=== PATIENT | female | born 1995 | race Hispanic/Latino ===

== ENCOUNTER 2020-03-30 11:30 | Emergency (ER) | payer SELFPAY ==
[2020-03-30 13:00] LABS: Absolute Lymphocytes (CBC) 1.4 K/uL (0.7-4.9); Basophils % 0.4 % (0-1.3); Hematocrit 39.1 % (36.0-45.0); Lymphocytes % 12.9 % (15.3-44.8); MPV 7.6 fL (7.6-11.3); RBC Red Blood Cell Count 4.68 M/uL (3.86-4.86)
[2020-03-30] MEDS ORDERED: METHYLDOPA 250 MG TABLET PO ONE (13:00)
[2020-03-30 13:04] LABS: ALT/SGPT 23 U/L (12-78); AST/SGOT 16 U/L (15-37); Albumin 3.3 g/dL (3.4-5.0); Alkaline Phosphatase 115 U/L (45-117); BUN Blood Urea Nitrogen 7 mg/dL (7-18); Bicarbonate 27 mmol/L (21-32); Bilirubin Direct < 0.1 mg/dL (0-0.2); Bilirubin Total 0.2 mg/dL (0.2-1.0); Glucose Level 82 mg/dL (74-106); NT PRO-BNP 28 pg/mL (<125); Potassium 3.7 mmol/L (3.5-5.1); Protein, Total 8.6 g/dL (6.4-8.2); Sodium Level 137 mmol/L (136-145); Troponin (Emerg Dept Use Only) < 0.02 ng/mL (0.0-0.045)
[2020-03-30] MEDS ORDERED: NA CHLORIDE 0.9% 1,000 ML ONE (13:20)
--- NOTE | 2020-03-30 13:50 | RAD REPORT ---
EXAM DESCRIPTION: RAD - Chest Single View - 03/30/2020 1:29 pm CLINICAL HISTORY: DYSPNEA, hypertension COMPARISON: None TECHNIQUE: AP portable chest image was obtained 03/30/2020 1:29 pm . FINDINGS: Lungs are clear. Heart and vasculature are normal. No measurable pleural effusion and no p neumothorax. No acute bony abnormality seen. No acute aortic findings suspected. IMPRESSION: No acute cardiopulmonary process.
--- NOTE | 2020-03-30 14:05 | EDPHYS ---
Physician Documentation [facility] Name: Rica Acuna Age: 24 yrs Sex: Female : 1995 Arrival Date: 03/30/2020 Time: 11:31 Bed 6 Private MD: ED Physician Rory Paris HPI: 03/30 13:47 This 24 yrs old Female presents to ER via Ambulatory with complaints of High pipo Blood Pressure. 13:47 The patient has elevated blood pressure and discovered this at home. Onset: The piop symptoms/episode began/occurred 3 day(s) ago. Modifying factors: The symptoms are aggravated by activity, The symptoms are alleviated by remaining still. Associated signs and symptoms: Pertinent positives: headache. Severity of symptoms: At its worst the blood pressure was moderate, in the emergency department the blood pressure is unchanged. The patient has experienced similar episodes in the past, several times. Historical: - Allergies: 11:45 No Known Allergies; aa5 - Home Meds: 11:45 Prednisone Oral [Active]; Progesterone [Active]; Vitamin Oral [Active]; aa5 Metformin Oral [Active]; - PMHx: 11:45 Gestational Diabetes; Migraines; aa5 - PSHx: 11:45 None; aa5 - Immunization history:: Adult Immunizations unknown. - Social history:: Smoking status: Patient denies any tobacco usage or history of. ROS: 13:52 Constitutional: Negative for fever, chills, and weight loss, Eyes: Negative for injury, pipo pain, redness, and discharge, ENT: Negative for injury, pain, and discharge, Neck: Negative for injury, pain, and swelling, Cardiovascular: Negative for chest pain, palpitations, and edema, Respiratory: Negative for shortness of breath, cough, wheezing, and pleuritic chest pain, Abdomen/GI: Negative for abdominal pain, nausea, vomiting, diarrhea, and constipation, Back: Negative for injury and pain, : Negative for injury, bleeding, discharge, and swelling, MS/Extremity: Negative for injury and deformity, Skin: Negative for injury, rash, and discoloration, Psych: Negative for depression, anxiety, suicide ideation, homicidal ideation, and hallucinations, Allergy/Immunology: Negative for hives, rash, and allergies, Endocrine: Negative for neck swelling, polydipsia, polyuria, polyphagia, and marked weight changes, Hematologic/Lymphatic: Negative for swollen nodes, abnormal bleeding, and unusual bruising. 13:52 Neuro: Positive for hearing loss. Exam: 13:52 Constitutional: This is a well developed, well nourished patient who is awake, alert, pipo and in no acute distress. Head/Face: Normocephalic, atraumatic. Eyes: Pupils equal round and reactive to light, extra-ocular motions intact. Lids and lashes normal. Conjunctiva and sclera are non-icteric and not injected. Cornea within normal limits. Periorbital areas with no swelling, redness, or edema. ENT: Nares patent. No nasal discharge, no septal abnormalities noted. Tympanic membranes are normal and external auditory canals are clear. Oropharynx with no redness, swelling, or masses, exudates, or evidence of obstruction, uvula midline. Mucous membranes moist. Neck: Trachea midline, no thyromegaly or masses palpated, and no cervical lymphadenopathy. Supple, full range of motion without nuchal rigidity, or vertebral point tenderness. No Meningismus. Chest/axilla: Normal chest wall appearance and motion. Nontender with no deformity. No lesions are appreciated. Cardiovascular: Regular rate and rhythm with a normal S1 and S2. No gallops, murmurs, or rubs. Normal PMI, no JVD. No pulse deficits. Respiratory: Lungs have equal breath sounds bilaterally, clear to auscultation and percussion. No rales, rhonchi or wheezes noted. No increased work of breathing, no retractions or nasal flaring. Abdomen/GI: Soft, non-tender, with normal bowel sounds. No distension or tympany. No guarding or rebound. No evidence of tenderness throughout. Back: No spinal tenderness. No costovertebral tenderness. Full range of motion. Skin: Warm, dry with normal turgor. Normal color with no rashes, no lesions, and no evidence of cellulitis. MS/ Extremity: Pulses equal, no cyanosis. Neurovascular intact. Full, normal range of motion. Psych: Awake, alert, with orientation to person, place and time. Behavior, mood, and affect are within normal limits. 13:52 Neuro: Orientation: is normal, appropriate for stated age, no acute changes, Mentation: is normal, appropriate for stated age, no acute changes, Memory: is normal, appropriate for stated age, no acute changes, Cranial nerves: grossly normal, is grossly normal based on the patient's age, no acute changes, Cerebellar function: is grossly normal, is grossly normal based on the patient's age, no acute changes, Motor: is normal, is grossly normal based on the patient's age, no acute changes, moves all fours, Sensation: is normal, no acute changes, Gait: not applicable is steady, appropriate for age, Deep tendon reflexes are 2+ (normal) in the bilateral brachioradialis, bicep, tricep and patellar and Achilles tendons, Babinski testing is normal, seizure activity, is not displayed by the patient. Vital Signs: 11:45 BP 149 / 103; Pulse 79; Resp 16 S; Temp 97.7(O); Pulse Ox 100% on R/A; Weight 95 kg aa5 (R); Height 5 ft. 4 in. (162.56 cm) (R); Pain 10/10; 12:45 BP 145 / 96; Pulse 73; Resp 16; Pulse Ox 100% on R/A; iw 13:22 BP 126 / 90; Pulse 73; Resp 17; Pulse Ox 100% ; jl7 14:00 BP 136 / 97; Pulse 73; Resp 17; Pulse Ox 100% ; Pain 10/10; jl7 11:45 Body Mass Index 35.95 (95.00 kg, 162.56 cm) aa5 [place] Coma Score: 14:09 Eye Response: spontaneous(4). Verbal Response: oriented(5). Motor Response: obeys pipo commands(6). Total: 15. MDM: 12:02 Patient medically screened. pipo 14:09 Differential diagnosis: hypertensive crisis, Malignant HTN, urinary tract infection. pipo Data reviewed: vital signs, nurses notes, lab test result(s), EKG, radiologic studies, plain films. 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 Test interpretation: by ED physician or midlevel provider: ECG, plain radiologic studies. Counseling: I had a detailed discussion with the patient and/or guardian regarding: the historical points, exam findings, and any diagnostic results supporting the discharge/admit diagnosis, lab results, radiology results. 03/30 12:20 Order name: Basic Metabolic Panel; Complete Time: 13:16 pipo 03/30 12:20 Order name: CBC with Diff; Complete Time: 14:03 [facility] 03/30 12:20 Order name: LFT's; Complete Time: 13:16 [facility] 03/30 12:20 Order name: Magnesium; Complete Time: 13:16 [facility] 03/30 12:20 Order name: NT PRO-BNP; Complete Time: 13:16 [facility] 03/30 12:20 Order name: Troponin (emerg Dept Use Only); Complete Time: 13:16 [facility] 03/30 12:20 Order name: XRAY Chest (1 view); Complete Time: 14:03 [facility] 03/30 12:20 Order name: US Transvaginal Ob [facility] 03/30 14:12 Order name: Urine Dipstick--Ancillary (enter results) [facility] 03/30 14:12 Order name: Urine --Ancillary (enter results) [facility] 03/30 12:20 Order name: EKG; Complete Time: 12:22 [facility] 03/30 12:20 Order name: Cardiac monitoring; Complete Time: 13:33 [facility] 03/30 12:20 Order name: EKG - Nurse/Tech; Complete Time: 13:33 [facility] 03/30 12:20 Order name: IV Saline Lock; Complete Time: 13:33 [facility] 03/30 12:20 Order name: Labs collected and sent; Complete Time: 13:33 [facility] 03/30 12:20 Order name: O2 Per Protocol; Complete Time: 13:33 [facility] 03/30 12:20 Order name: O2 Sat Monitoring; Complete Time: 13:33 [facility] 03/30 12:20 Order name: Urine Dipstick-Ancillary (obtain specimen); Complete Time: 13:36 [facility] Administered Medications: 13:14 Not Given (Duplicate Order): Methyldopa 500 mg PO once [facility] 14:00 Drug: Tylenol 1000 mg Route: PO; jl7 14:52 Follow up: Response: No adverse reaction; Pain is decreased jl7 14:02 Not Given (Duplicate Order): Trandate 100 mg PO once [facility] 14:20 Drug: Trandate 50 mg Route: PO; jl7 14:52 Follow up: Response: No adverse reaction; Blood pressure is lowered jl7 14:55 Not Given (Patient Refused): NS 0.9% 1000 ml IV at 125 ml/hr continuous jl7 Disposition: 03/30/20 14:05 Discharged to Home. Impression: Essential (primary) hypertension, related conditions, unspecified, first trimester, Headache. - Condition is Stable. - Discharge Instructions: General Headache Without Cause, Hypertension, First Trimester of , [id number], Hypertension, [id number], First Trimester of , How to Take Your Blood Pressure, [id number], General Headache Without Cause, Fhtz-as-[id number], Managing Your Hypertension. - Prescriptions for Vitamin 27- 0.8 mg Oral Tablet - take 1 tablet by ORAL route once daily; 30 tablet. Trandate 200 mg Oral Tablet - take 0.25 tablet by ORAL route every 12 hours; 30 tablet. - Medication Reconciliation Form, Thank You Letter, Antibiotic Education, Prescription Opioid Use form. - Follow up: Vu Sexton MD; When: 2 - 3 days; Reason: Recheck today's complaints, Re-evaluation by your physician. - Problem is new. - Symptoms have improved. Signatures: Dispatcher [employer] EDGA Rory Paris MD MD cha Calderon, Audri, RN RN aa5 Mckenna Cortez RN RN jl7 Corrections: (The following items were deleted from the chart) 14:56 14:05 03/30/2020 14:05 Discharged to Home. Impression: Essential (primary) jl7 hypertension; related conditions, unspecified, first trimester; Headache. Condition is Stable. Forms are Medication Reconciliation Form, Thank You Letter, Antibiotic Education, Prescription Opioid Use. Follow up: Vu Sexton; When: 2 - 3 days; Reason: Recheck today's complaints, Re-evaluation by your physician. Problem is new. Symptoms have improved. pipo
--- NOTE | 2020-03-30 14:05 | ER ---
Nurse's Notes [facility] Name: Rica Acuna Age: 24 yrs Sex: Female : 1995 Arrival Date: 03/30/2020 Time: 11:31 Bed 6 Private MD: Diagnosis: Essential (primary) hypertension; related conditions, unspecified, first trimester;Headache Presentation: 03/30 11:45 Chief complaint: Patient states: has been on fertility treatment (prednisone and aa5 progesterone) for 6 months and reports she is approximately 5-6 weeks . Pt states "I've had a headache for the last 2 days and I went to a clinic and they took my blood pressure and it was 163/105 so they sent me here". Pt reports low abdominal cramping x 2 weeks, denies vaginal bleeding. Pt states "I had gestational diabetes during the 3rd trimester with my last baby but not high blood pressure". Pt reports hx of migraines but states "it doesn't feel like a migraine". 11:45 Coronavirus screen: Client denies travel out of the [place] in the last 14 days. headache. aa5 Ebola Screen: Patient negative for fever greater than or equal to 101.5 degrees Fahrenheit, and additional compatible Ebola Virus Disease symptoms. Initial Sepsis Screen: Does the patient meet any 2 criteria? No. Patient's initial sepsis screen is negative. Does the patient have a suspected source of infection? No. Patient's initial sepsis screen is negative. Risk Assessment: Do you want to hurt yourself or someone else? Patient reports no desire to harm self or others. Onset of symptoms was March 30, 2020. 11:45 Acuity: MARY 3 aa5 11:45 Method Of Arrival: Ambulatory aa5 Historical: - Allergies: 11:45 No Known Allergies; aa5 - Home Meds: 11:45 Prednisone Oral [Active]; Progesterone [Active]; Vitamin Oral [Active]; aa5 Metformin Oral [Active]; - PMHx: 11:45 Gestational Diabetes; Migraines; aa5 - PSHx: 11:45 None; aa5 - Immunization history:: Adult Immunizations unknown. - Social history:: Smoking status: Patient denies any tobacco usage or history of. Screenin:23 Abuse screen: Denies threats or abuse. Denies injuries from another. Nutritional jl7 screening: No deficits noted. Tuberculosis screening: No symptoms or risk factors identified. Fall Risk IV access (20 points). Total Villatoro Fall Scale indicates No Risk (0-24 pts). Assessment: 12:00 General: Appears in no apparent distress. uncomfortable, Behavior is calm, cooperative, jl7 appropriate for age. Pain: Complains of pain in MTZ Pain currently is 10 out of 10 on a pain scale. Neuro: Level of Consciousness is awake, alert, obeys commands, Oriented to person, place, time, situation. Cardiovascular: Patient's skin is warm and dry. Respiratory: Airway is patent Respiratory effort is even, unlabored, Respiratory pattern is regular, symmetrical. Derm: Skin is pink, warm \\T\\ dry. 14:00 Reassessment: pt c/o MTZ, rated 10/10, requesting medications, ERD notified, see MAR for jl7 orders. Vital Signs: 11:45 BP 149 / 103; Pulse 79; Resp 16 S; Temp 97.7(O); Pulse Ox 100% on R/A; Weight 95 kg aa5 (R); Height 5 ft. 4 in. (162.56 cm) (R); Pain 10/10; 12:45 BP 145 / 96; Pulse 73; Resp 16; Pulse Ox 100% on R/A; iw 13:22 BP 126 / 90; Pulse 73; Resp 17; Pulse Ox 100% ; jl7 14:00 BP 136 / 97; Pulse 73; Resp 17; Pulse Ox 100% ; Pain 10/10; jl7 11:45 Body Mass Index 35.95 (95.00 kg, 162.56 cm) aa5 [place] Coma Score: 14:09 Eye Response: spontaneous(4). Verbal Response: oriented(5). Motor Response: obeys pipo commands(6). Total: 15. ED Course: 11:31 Patient arrived in ED. ag5 11:45 Mckenna Cortez RN is Primary Nurse. jl7 11:45 Arm band placed on Patient placed in an exam room, on a stretcher. aa5 12:02 Rory Paris MD is Attending Physician. pipo 12:03 Triage completed. aa5 12:30 Initial lab(s) drawn, by ED staff, sent to lab. Inserted saline lock: 20 gauge in right jl7 antecubital area, using aseptic technique. ,using aseptic technique. inserted by CRISTOFER Fatima Blood collected. 13:23 Patient has correct armband on for positive identification. Placed in gown. Bed in low jl7 position. Call light in reach. Side rails up X 1. cloth folder hand on. Pulse ox on. NIBP on. 13:29 XRAY Chest (1 view) In Process Unspecified. EDMS 13:36 EKG done, by ED staff, reviewed by Rory Paris MD. jl7 13:54 US Transvaginal Ob In Process Unspecified. EDMS 14:04 Vu Sexton MD is Referral Physician. [facility] 14:55 No provider procedures requiring assistance completed. IV discontinued, intact, jl7 bleeding controlled, No redness/swelling at site. Pressure dressing applied. Administered Medications: 13:14 Not Given (Duplicate Order): Methyldopa 500 mg PO once [facility] 14:00 Drug: Tylenol 1000 mg Route: PO; jl7 14:52 Follow up: Response: No adverse reaction; Pain is decreased jl7 14:02 Not Given (Duplicate Order): Trandate 100 mg PO once [facility] 14:20 Drug: Trandate 50 mg Route: PO; jl7 14:52 Follow up: Response: No adverse reaction; Blood pressure is lowered jl7 14:55 Not Given (Patient Refused): NS 0.9% 1000 ml IV at 125 ml/hr continuous jl7 Outcome: 14:05 Discharge ordered by . [facility] 14:55 Discharged to home ambulatory. jl7 14:55 Condition: stable 14:55 Discharge instructions given to patient, Instructed on discharge instructions, follow up and referral plans. medication usage, Demonstrated understanding of instructions, follow-up care, medications, Prescriptions given X 2. 14:56 Patient left the ED. jl7 Signatures: Dispatcher [employer] Rory Rmaírez MD MD cha Williams, Irene, RN RN iw Calderon, Audri, RN RN aa5 Mckenna Cortez RN RN jl7 Alfredo Godoy5 Corrections: (The following items were deleted from the chart) 12:06 11:45 Chief complaint: Patient states: has been on fertility treatment (prednisone and aa5 progesterone) for 6 months and reports she is approximately 5-6 weeks . Pt states "I've had a headache for the last 2 days and I went to a clinic and they took my blood pressure and it was 163/105 so they sent me here". Pt reports low abdominal cramping x 2 weeks, denies vaginal bleeding. Pt states "I had gestational diabetes during the 3rd trimester with my last baby but not high blood pressure". aa5 13: 10:00 Response: No adverse reaction iw 10:00 Response: No adverse reaction iw 10:00 Response: No adverse reaction [facility] 10:00 Response: No adverse reaction [facility]
[2020-03-30] MEDS ORDERED: ACETAMINOPHEN 500 MG TAB ONE (14:11)
--- NOTE | 2020-03-30 14:22 | RAD REPORT ---
EXAM DESCRIPTION: US - Transvaginal OB - 03/30/2020 1:55 pm CLINICAL HISTORY: ABD CRAMPING, COMPARISON: No comparisons FINDINGS: Normal shaped intrauterine gestational sac identified fundal portion. No myometrial mass. No hematoma or suspicious mass in the endometrial cavity. Gestational sac, pole and yolk sac wa ll identifiable. Measurements correspond to a 6 week 2 day age. Heart rate is 96-101 BPM. Minimal physiologic quantity fluid in the cul de sac. Both ovaries are identified and show normal blood flow in the ovarian stroma. No adnexal abnormality identified. IMPRESSION: Single 6 week 2 day IUP with cardiac activity demonstrated.
[2020-03-30 14:27] LABS: Urine Blood TRACE (NEG); Urine Glucose NEGATIVE (NEG); Urine Protein NEGATIVE (NEG); Urine Specific Gravity 1.015 (1.005-1.030); Urine pH 5.5 (5.0-7.0)
[2020-03-30] MEDS ORDERED: LABETALOL HCL 100 MG TAB ONE ×2 (14:28→14:30)
[2020-04-03 01:21] VITALS: TEMP 97.7; O2SAT 100
[2020-04-03 01:24] VITALS: BP 136/97
== END 2020-03-30 14:56 | disposition home or self-care (01) ==
LOC: ER 11:30
DX: O16.1 Unspecified maternal hypertension, first trimester (principal); O24.419 Gestational diabetes mellitus in pregnancy, unspecified control; Z3A.01 Less than 8 weeks gestation of pregnancy
CPT/HCPCS: 36415; 71045; 76817; 80048; 80076; 81003; 81025; 83735; 83880; 84484; 85025; 93005; 99285; J7030

== ENCOUNTER 2022-03-05 20:34 | Emergency (ER) | payer SELFPAY ==
--- OUTSIDE RECORDS SUMMARY | 2022-03-05 20:41 | XMS REPORT | Continuity of Care Document ---
:1995 Author Organization [facility] t Address [address] [place] [address] Care Team Providers Name Role Phone Janki Oliveros Primary Care Physician [phone] DIVYA HENSLEY Attending Clinician Unavailable Divya Hensley DNP Attending Clinician Doctor Unassigned, [place] Attending Clinician Unavailable Provider, Daljit-Rmchp Temp Attending Clinician Unavailable Yanelis Joseph PA-C Attending Clinician YANELIS JOSEPH Attending Clinician Unavailable Reyna Perry Attending Clinician REYNA TRISTAN Attending Clinician Unavailable Yasmani, DenRmdonip Attending Clinician Unavailable Janki Oliveros Attending Clinician [phone] JANKI DUEÑAS Attending Clinician Unavailable 1, [facility] Room Attending Clinician Unavailable David Lemos MD Attending Clinician Sera Lewis RN Attending Clinician Unavailable SHILPA BANGURA Attending Clinician Unavailable Kathia Vazquez MD Attending Clinician 3, [facility] Room Attending Clinician Unavailable Ron Hope MD Attending Clinician Lab, [facility] Attending Clinician Unavailable Jennifer JACINTO, Trinity Hua Attending Clinician 1, [facility] Room Attending Clinician Unavailable Marc CLEVELAND, Ana Attending Clinician Unavailable Risk, Dxi-Qacze-Ps/High Attending Clinician Unavailable Alvarez JERALDJo Ann Attending Clinician DAVID LEMOS Admitting Clinician Unavailable KATHIA VAZQUEZ Admitting Clinician Unavailable David Lemos MD Admitting Clinician Kathia Vazquez MD Admitting Clinician Payers Payer Name Policy Type Policy Number Effective Date Expiration Date S laura [facility] M[facility] CHIP PAMELLA [id number] 2020 LOW FPL 00:00:00 [place] [facility] [id number] 2020 HEALTH PLAN MOM 00:00:00 CHIP LOW FPL Problems Condition Condition Condition Status Onset Resolution Last Treating Co mments Source Name Details Category Date Date Treatment Clinician Date COVID-19 COVID-19 Disease Active Unive rs affecting affecting 7-28 [place] Med[place] l trimester trimester Bran ch 38 weeks 38 weeks Disease Active Unive rs gestation gestation 7-28 ity of of of 00:00: [place] 00 [facility] papi Branch 25 weeks 25 weeks Disease Active Unive rs gestation gestation 5-03 ity of of of 00:00: [place] 00 Medi papi Branch 22 weeks 22 weeks Disease Active Unive rs gestation gestation 4-06 ity of of of 00:00: [place] 00 [facility] Branch UTI in UTI in Disease Active Overview: Univer s 04-28 Formattin i ty of 00:00: g of this [place] 00 note Medical might be Branch different from the original. neg patti Abnormal Abnormal Disease Active Overview: Un [facility] maternal maternal 04-25 Formattin ity of glucose glucose 00:00: g of this [place] tolerance, tolerance, 00 note Me dical antepartum antepartum might be Branch different from the original. Passed early 3hr gtt History of History of Disease Active Overview : Univers gestationa gestationa 04-24 Formattin ity of l diabetes l diabetes 00:00: g of this [place] 00 note Medical might be Branch different from the original. Reports diet controlle d Supervisio Supervisio Disease Active 2021-0 U nivers n of n of 1-07 ity of high-risk high-risk 00:00: [place] s [facility] Obesity in Obesity in Disease Active 2020- U nivers - ity of 00:00: [place] [address] Medical [place] Multiparit Multiparit Disease Active U nivers y y - ity of 00:00: [place] [address] Medical [place] Medication Medication Disease Active U nivers exposure exposure 1-07 ity of during during 00:00: [place] first first 00 Medical trimester trimester Bran ch of of Allergies, Adverse Reactions, Alerts Allergy Allergy Status Severity Reaction(s) Onset Inactive Treating Comm ents Source Name Type Date Date Clinician NO KNOWN Drug Active Univers ALLERGIE Class ity of S [facility] Social History Social Habit Start Date Stop Date Quantity Comments Source ASSERTION 2020-03-04 University of 00:00:00 [facility] Exposure to Not sure University of SARS-CoV-2 [place] [facility] (event) Branch History [facility] o f Alcohol Comment [place] [facility] ical Branch Alcohol intake 2021-03-11 2021-03-11 Lifetime University of 00:00:00 00:00:00 non-drinker [place] [facility] (finding) Branch Tobacco use and 2020-04-24 2020-04-24 Never used Universit y of exposure 00:00:00 00:00:00 [place] [facility] Branch History SDOH 2020-04-24 2020-04-24 1 University o f Alcohol Frequency 00:00:00 00:00:00 [place] M edical Branch History [facility] 2020-04-24 2020-04-24 99 University o f Alcohol Std 00:00:00 00:00:00 [place] [facility] Drinks Branch History SDAL 2020-04-24 2020-04-24 1 University o f Alcohol Binge 00:00:00 00:00:00 [place] [facility] al Branch Sex Ass[birth year] At [birth year] Universit y of 00:00:00 00:00:00 [facility] Smoking Status Start Date Stop Date Source Never smoker [facility] Branch Medications Ordered Filled Start Stop Current Ordering Indication Dosage Frequency Signature Comments Components Source Medication Medication Date Date Medication? Clinician (SIG) Name Name Yes [id number] 1{tbl} Take 1 U nivers [id number] 7-30 tablet by ity of fum-folic 00:00: mouth [place] () 00 daily. Medical 27 mg iron- Branch 1 mg Tab ferrous Yes [id number] 325mg Take 1 Uni vers sulfate 325 7-30 tablet by ity of mg (65 mg 00:00: mouth 2 [place] iron) 00 (two) Medical tablet times Branch daily. Yes [id number] 1{tbl} Take 1 U nivers [id number] 7-30 tablet by ity of fum-folic 00:00: mouth [place] () 00 daily. Medical 27 mg iron- Branch 1 mg Tab docusate Yes [id number] 240mg Take 1 Un [facility] calcium 240 7-30 capsule by it y of mg capsule 00:00: mouth [place] 00 daily as Medical needed for Branch Constipati on. ferrous Yes [id number] 325mg Take 1 Uni vers sulfate 325 7-30 tablet by ity of mg (65 mg 00:00: mouth 2 [place] iron) 00 (two) Medical tablet times Branch daily. ibuprofen Yes [id number] 600mg Take 1 U nivers 600 mg 7-30 tablet by ity of tablet 00:00: mouth [place] 00 every 6 Medical (six) Branch hours as needed (Pain). Take with food or milk. Yes [id number] 1{tbl} Take 1 U nivers [id number] 7-30 tablet by ity of fum-folic 00:00: mouth [place] () 00 daily. Medical 27 mg iron- Branch 1 mg Tab ferrous Yes [id number] 325mg Take 1 Uni vers sulfate 325 7-30 tablet by ity of mg (65 mg 00:00: mouth 2 [place] iron) 00 (two) Medical tablet times Branch daily. Yes [id number] 1{tbl} Take 1 U nivers [id number] 7-30 tablet by ity of fum-folic 00:00: mouth [place] () 00 daily. Medical 27 mg iron- Branch 1 mg Tab ferrous Yes [id number] 325mg Take 1 Uni vers sulfate 325 7-30 tablet by ity of mg (65 mg 00:00: mouth 2 [place] iron) 00 (two) Medical tablet times Branch daily. docusate 2020- No [id number] 240mg Take 1 U nivers calcium 240 11-14 capsule by i ty of mg capsule 00:00: 00:00 mouth once [place] 00 :00 daily as Medical needed for Branch Constipati on. ibuprofen 2020- No [id number] 600mg Take 1 Univers 600 mg 11-14 tablet by ity of tablet 00:00: 00:00 mouth [place] 00 :00 every 6 Medical (six) Branch hours as needed (Pain). Take with food or milk. pantoprazol Yes [id number] 40mg Take 1 Univers e 7-23 tablet by ity of (PROTONIX) 00:00: mouth [place] 40 mg EC 00 daily. Medical tablet Branch pantoprazol Yes [id number] 40mg Take 1 Univers e 7-23 tablet by ity of (PROTONIX) 00:00: mouth [place] 40 mg EC 00 daily. Medical tablet Branch metroNIDAZO 2020- No [id number] 500mg Take 1 Un [facility] LE 500 mg 7-16 -24 tablet by ity of tablet 00:00: 04:59 mouth 2 [place] 00 :00 (two) Medical times Branch daily for 7 days. Indication s: an infection of the vagina called bacterial vaginosis metroNIDAZO 2020- No [id number] 500mg Take 1 Un [facility] LE 500 mg 7-16 -24 tablet by ity of tablet 00:00: 04:59 mouth 2 [place] 00 :00 (two) Medical times Branch daily for 7 days. Indication s: an infection of the vagina called bacterial vaginosis metroNIDAZO 2020- No 2213 500mg Take 1 Un [facility] LE 500 mg 7-16 07-24 tablet by ity of tablet 00:00: 04:59 mouth 2 [place] 00 :00 (two) Medical times Branch daily for 7 days. Indication s: an infection of the vagina called bacterial vaginosis metroNIDAZO 2020- No 2213 500mg Take 1 Un [facility] LE 500 mg 7-16 07-24 tablet by ity of tablet 00:00: 04:59 mouth 2 [place] 00 :00 (two) Medical times Branch daily for 7 days. Indication s: an infection of the vagina called bacterial vaginosis metroNIDAZO 2020- No 2213 500mg Take 1 Un [facility] LE 500 mg 10-31 tablet by ity of tablet 00:00: 04:59 mouth 2 [place] 00 :00 (two) Medical times Branch daily for 7 days. Indication s: an infection of the vagina called bacterial vaginosis metroNIDAZO 2020- No 2213 500mg Take 1 Un [facility] LE 500 mg 10-31 tablet by ity of tablet 00:00: 04:59 mouth 2 [place] 00 :00 (two) Medical times Branch daily for 7 days. Indication s: an infection of the vagina called bacterial vaginosis metroNIDAZO 2020- No [id number] 500mg Take 1 Un [facility] LE 500 mg 10-31 tablet by ity of tablet 00:00: 04:59 mouth 2 [place] 00 :00 (two) Medical times Branch daily for 7 days. Indication s: an infection of the vagina called bacterial vaginosis fluconazole 2020- No [id number] 150mg Take 1 Univers (DIFLUCAN) 10-31 tablet by ity of 150 mg 00:00: 04:59 mouth [place] tablet 00 :00 now for 1 Medical dose. Branch fluconazole 2020- No [id number] 150mg Take 1 Univers (DIFLUCAN) 10-31 tablet by ity of 150 mg 00:00: 04:59 mouth [place] tablet 00 :00 now for 1 Medical dose. Branch fluconazole 2020- No [id number] 150mg Take 1 Univers (DIFLUCAN) 10-31 tablet by ity of 150 mg 00:00: 04:59 mouth [place] tablet 00 :00 now for 1 Medical dose. Branch fluconazole 2020- No [id number] 150mg Take 1 Univers (DIFLUCAN) 10-31 tablet by ity of 150 mg 00:00: 04:59 mouth [place] tablet 00 :00 now for 1 Medical dose. Branch fluconazole 2020- No [id number] 150mg Take 1 Univers (DIFLUCAN) 10-31 tablet by ity of 150 mg 00:00: 04:59 mouth [place] tablet 00 :00 now for 1 Medical dose. Branch Iron Fum & 2020- No Anemia of 1{capsu Take 1 Univers P-FA-Vit B 08-22- mother in le} capsule by ity of & C No.9 00:00: 04:59 , mouth [place] (INTEGRA 00 :00 antepartum daily for Medical PLUS) 125 90 days. Branch mg iron- 1 mg Cap Iron Fum & 2020- No [id number] 1{capsu Take 1 Univers P-FA-Vit B 08-22- le} capsule by it y of & C No.9 00:00: 04:59 mouth [place] (INTEGRA 00 :00 daily for Medica l PLUS) 125 90 days. Branch mg iron- 1 mg Cap Iron Fum & 2020- No [id number] 1{capsu Take 1 Univers P-FA-Vit B 08-22- le} capsule by it y of & C No.9 00:00: 04:59 mouth [place] (INTEGRA 00 :00 daily for Medica l PLUS) 125 90 days. Branch mg iron- 1 mg Cap Iron Fum & 2020- No [id number] 1{capsu Take 1 Univers P-FA-Vit B 08-22- le} capsule by it y of & C No.9 00:00: 04:59 mouth [place] (INTEGRA 00 :00 daily for Medica l PLUS) 125 90 days. Branch mg iron- 1 mg Cap Iron Fum & 2020- No [id number] 1{capsu Take 1 Univers P-FA-Vit B 08-22- le} capsule by it y of & C No.9 00:00: 04:59 mouth [place] (INTEGRA 00 :00 daily for Medica l PLUS) 125 90 days. Branch mg iron- 1 mg Cap Iron Fum & 2020- No [id number] 1{capsu Take 1 Univers P-FA-Vit B 08-22-06 le} capsule by it y of & C No.9 00:00: 04:59 mouth [place] (INTEGRA 00 :00 daily for Medica l PLUS) 125 90 days. Branch mg iron- 1 mg Cap Iron Fum & 2020- No [id number] 1{capsu Take 1 Univers P-FA-Vit B 5-07 08-06 le} capsule by it y of & C No.9 00:00: 04:59 mouth [place] (INTEGRA 00 :00 daily for Medica l PLUS) 125 90 days. Branch mg iron- 1 mg Cap Iron Fum & 2020- No [id number] 1{capsu Take 1 Univers P-FA-Vit B 5-07 08-06 le} capsule by it y of & C No.9 00:00: 04:59 mouth [place] (INTEGRA 00 :00 daily for Medica l PLUS) 125 90 days. Branch mg iron- 1 mg Cap Iron Fum & 2020- No [id number] 1{capsu Take 1 Univers P-FA-Vit B 5-07 08-06 le} capsule by it y of & C No.9 00:00: 04:59 mouth [place] (INTEGRA 00 :00 daily for Medica l PLUS) 125 90 days. Branch mg iron- 1 mg Cap Iron Fum & 2020- No [id number] 1{capsu Take 1 Univers P-FA-Vit B 5-07 08-06 le} capsule by it y of & C No.9 00:00: 04:59 mouth [place] (INTEGRA 00 :00 daily for Medica l PLUS) 125 90 days. Branch mg iron- 1 mg Cap Iron Fum & 2020- No [id number] 1{capsu Take 1 Univers P-FA-Vit B 5-07 08-06 le} capsule by it y of & C No.9 00:00: 04:59 mouth [place] (INTEGRA 00 :00 daily for Medica l PLUS) 125 90 days. Branch mg iron- 1 mg Cap Iron Fum & 2020- No [id number] 1{capsu Take 1 Univers P-FA-Vit B 5-07 08-06 le} capsule by it y of & C No.9 00:00: 04:59 mouth [place] (INTEGRA 00 :00 daily for Medica l PLUS) 125 90 days. Branch mg iron- 1 mg Cap Iron Fum & 2020- No [id number] 1{capsu Take 1 Univers P-FA-Vit B 5-07 08-06 le} capsule by it y of & C No.9 00:00: 04:59 mouth [place] (INTEGRA 00 :00 daily for Medica l PLUS) 125 90 days. Branch mg iron- 1 mg Cap Iron Fum & 2020- No [id number] 1{capsu Take 1 Univers P-FA-Vit B 08-2206 le} capsule by it y of & C No.9 00:00: 04:59 mouth [place] (INTEGRA 00 :00 daily for Medica l PLUS) 125 90 days. Branch mg iron- 1 mg Cap Iron Fum & 2020- No [id number] 1{capsu Take 1 Univers P-FA-Vit B 08-22 le} capsule by it y of & C No.9 00:00: 00:00 mouth [place] (INTEGRA 00 :00 daily for Medica l PLUS) 125 90 days. Branch mg iron- 1 mg Cap Iron Fum & 2020- No [id number] 1{capsu Take 1 Univers P-FA-Vit B 08-22 le} capsule by it y of & C No.9 00:00: 00:00 mouth [place] (INTEGRA 00 :00 daily for Medica l PLUS) 125 90 days. Branch mg iron- 1 mg Cap Iron Fum & 2020- No [id number] 1{capsu Take 1 Univers P-FA-Vit B 08-22 le} capsule by it y of & C No.9 00:00: 00:00 mouth [place] (INTEGRA 00 :00 daily for Medica l PLUS) 125 90 days. Branch mg iron- 1 mg Cap fluconazole No 150mg 150 mg, U nivers (DIFLUCAN) 08-18 Oral, ONCE it y of tablet 150 19:15: 18:58 NOW, 1 [place] mg 00 :00 dose, [facility] 08/18/20 at [place] 1415, FAITH
Re ason for Anti-Infec tive: Documented Infection< br>Documen keyon Infection Site: Pelvic
Duration of Therapy: Other (see Comments) PREDNISONE 2020- No 5mg Take 5 mg U nivers ORAL 08-18-03 by mouth ity of 19:01: 00:00 daily. [place] 39 :00 [facility] PROGESTERON 2020- No 15mg Take 15 mg Univers E 5-06 20-03 by mouth 2 ity of MICRONIZED 19:01: 00:00 (two) [place] ORAL 39 :00 times Medical daily. Branch metroNIDAZO 2020- No Bacterial 500mg Take 1 Univers LE 500 mg 5-06 20- vaginosis tablet by ity of tablet 00:00: 04:59 in mouth 2 [place] 00 :00 (two) Medical times Branch daily for 7 days. metroNIDAZO 2020- No Bacterial 500mg Take 1 Univers LE 500 mg 508-26 vaginosis tablet by ity of tablet 00:00: 04:59 in mouth 2 [place] 00 :00 (two) Medical times Branch daily for 7 days. metroNIDAZO 2020- No [id number] 500mg Take 1 Univers LE 500 mg 08-18 9109 tablet by ity of tablet 00:00: 04:59 mouth 2 [place] 00 :00 (two) Medical times Branch daily for 7 days. metroNIDAZO 2020- No [id number] 500mg Take 1 Univers LE 500 mg 08-18 9109 tablet by ity of tablet 00:00: 04:59 mouth 2 [place] 00 :00 (two) Medical times Branch daily for 7 days. metroNIDAZO 2020- No [id number] 500mg Take 1 Univers LE 500 mg 08-18- 9109 tablet by ity of tablet 00:00: 04:59 mouth 2 [place] 00 :00 (two) Medical times Branch daily for 7 days. metroNIDAZO 2020- No [id number] 500mg Take 1 Univers LE 500 mg 5-06 20- 9109 tablet by ity of tablet 00:00: 04:59 mouth 2 [place] 00 :00 (two) Medical times Branch daily for 7 days. metroNIDAZO 2020- No [id number] 500mg Take 1 Univers LE 500 mg 5-06 20- 9109 tablet by ity of tablet 00:00: 04:59 mouth 2 [place] 00 :00 (two) Medical times Branch daily for 7 days. PREDNISONE Yes 5mg Take 5 mg [facility] ORAL 4-06 by mouth ity of 18:25: daily. [place] 24 Medical Branch PROGESTERON 2020-0 Yes 15mg Take 15 mg Univers E 4-06 by mouth 2 ity of MICRONIZED 18:25: (two) [place] ORAL 24 times Medical daily. Branch PREDNISONE 1-0 Yes 5mg Take 5 mg Un [place] ORAL 4-06 by mouth ity of 18:25: daily. [address] PROGESTERON 2020-0 Yes 15mg Take 15 mg Univers E 4-06 by mouth 2 ity of MICRONIZED 18:25: (two) [place] ORAL 24 times Medical daily. Branch PREDNISONE 1-0 Yes 5mg Take 5 mg [facility] [place] ORAL 4-06 by mouth ity of 18:25: daily. [address] PROGESTERON 2020-0 Yes 15mg Take 15 mg Univers E 4-06 by mouth 2 ity of MICRONIZED 18:25: (two) [place] ORAL 24 times Medical daily. Branch PREDNISONE 1-0 Yes 5mg Take 5 mg [facility] [place] ORAL 4-06 by mouth ity of 18:25: daily. [address] PROGESTERON 2020-0 Yes 15mg Take 15 mg Univers E 4-06 by mouth 2 ity of MICRONIZED 18:25: (two) [place] ORAL 24 times Medical daily. [place] PREDNISONE 1-0 Yes 5mg Take 5 mg Un [place] ORAL 1-21 by mouth ity of 16:08: daily. [address] PREDNISONE 1-0 Yes 5mg Take 5 mg [facility] [place] ORAL 1-21 by mouth ity of 16:08: daily. [address] PREDNISONE 1-0 Yes 5mg Take 5 mg [facility] [place] ORAL 1-21 by mouth ity of 16:08: daily. [address] PREDNISONE 2021-0 Yes 5mg Take 5 mg [facility] [place] ORAL 1-21 by mouth ity of 16:08: daily. [address] PREDNISONE 2021-0 Yes 5mg Take 5 mg [facility] [place] ORAL 1-21 by mouth ity of 16:08: daily. [address] PREDNISONE 2021-0 Yes 5mg Take 5 mg [facility] [place] ORAL 1-21 by mouth ity of 16:08: daily. [address] PREDNISONE 2021-0 Yes 5mg Take 5 mg [facility] [place] ORAL 1-21 by mouth ity of 16:08: daily. [address] PREDNISONE 2021-0 Yes 5mg Take 5 mg [facility] [place] ORAL 1-21 by mouth ity of 16:08: daily. [address] PREDNISONE 2020-0 Yes 5mg Take 5 mg [facility] [place] ORAL 1-21 by mouth ity of 16:08: daily. [address] PREDNISONE 2020-0 Yes 5mg Take 5 mg [facility] [place] ORAL 1-21 by mouth ity of 16:08: daily. [address] PREDNISONE 2020-0 Yes 5mg Take 5 mg [facility] [place] ORAL 1-21 by mouth ity of 16:08: daily. [address] Nitrofurant 2020- No [id number] 100mg Take 1 Univers oin&Nit. 04-28 capsule by ity of Macrocryst 00:00: 05:59 mouth 2 [place] (MACROBID) 00 :00 (two) Medical 100 mg times Branch capsule daily for 10 days. Nitrofurant 2020- No [id number] 100mg Take 1 Univers oin&Nit. 04-28 capsule by ity of Macrocryst 00:00: 05:59 mouth 2 [place] (MACROBID) 00 :00 (two) Medical 100 mg times Branch capsule daily for 10 days. Nitrofurant 2020- No [id number] 100mg Take 1 Univers oin&Nit. 04-28 capsule by ity of Macrocryst 00:00: 05:59 mouth 2 [place] (MACROBID) 00 :00 (two) Medical 100 mg times Branch capsule daily for 10 days. Nitrofurant 2020- No [id number] 100mg Take 1 Univers oin&Nit. 04-28 capsule by ity of Macrocryst 00:00: 05:59 mouth 2 [place] (MACROBID) 00 :00 (two) Medical 100 mg times Branch capsule daily for 10 days. Nitrofurant 2020- No [id number] 100mg Take 1 Univers oin&Nit. 04-28 capsule by ity of Macrocryst 00:00: 05:59 mouth 2 [place] (MACROBID) 00 :00 (two) Medical 100 mg times Branch capsule daily for 10 days. Nitrofurant 2020- No [id number] 100mg Take 1 Univers oin&Nit. 04-28 capsule by ity of Macrocryst 00:00: 05:59 mouth 2 [place] (MACROBID) 00 :00 (two) Medical 100 mg times Branch capsule daily for 10 days. Nitrofurant 2020- No [id number] 100mg Take 1 Univers oin&Nit. 04-28 capsule by ity of Macrocryst 00:00: 05:59 mouth 2 [place] (MACROBID) 00 :00 (two) Medical 100 mg times Branch capsule daily for 10 days. proMETHazin Yes Nausea and 25mg Take 1 Univers e 25 mg 1-08 vomiting tablet by ity of tablet 00:00: during mouth [place] 00 every 6 Medical (six) Branch hours as needed for Nausea and Vomiting (N/V). proMETHazin Yes Nausea and 25mg Take 1 Univers e 25 mg 1-08 vomiting tablet by ity of tablet 00:00: during mouth [place] 00 every 6 Medical (six) Branch hours as needed for Nausea and Vomiting (N/V). proMETHazin Yes [id number] 25mg Take 1 Univers e 25 mg 1-08 tablet by ity of tablet 00:00: mouth [place] 00 every 6 Medical (six) Branch hours as needed for Nausea and Vomiting (N/V). proMETHazin Yes [id number] 25mg Take 1 Univers e 25 mg 1-08 tablet by ity of tablet 00:00: mouth [place] 00 every 6 Medical (six) Branch hours as needed for Nausea and Vomiting (N/V). proMETHazin Yes [id number] 25mg Take 1 Univers e 25 mg 1-08 tablet by ity of tablet 00:00: mouth [place] 00 every 6 Medical (six) Branch hours as needed for Nausea and Vomiting (N/V). proMETHazin 0 Yes [id number] 25mg Take 1 Univers e 25 mg 1-08 tablet by ity of tablet 00:00: mouth [place] 00 every 6 Medical (six) Branch hours as needed for Nausea and Vomiting (N/V). proMETHazin Yes [id number] 25mg Take 1 Univers e 25 mg 1-08 tablet by ity of tablet 00:00: mouth [place] 00 every 6 Medical (six) Branch hours as needed for Nausea and Vomiting (N/V). proMETHazin 2020-0 Yes [id number] 25mg Take 1 Univers e 25 mg 1-08 tablet by ity of tablet 00:00: mouth [place] 00 every 6 Medical (six) Branch hours as needed for Nausea and Vomiting (N/V). proMETHazin 2020-0 Yes [id number] 25mg Take 1 Univers e 25 mg 1-08 tablet by ity of tablet 00:00: mouth [place] 00 every 6 Medical (six) Branch hours as needed for Nausea and Vomiting (N/V). proMETHazin 2020-0 Yes [id number] 25mg Take 1 Univers e 25 mg 1-08 tablet by ity of tablet 00:00: mouth [place] 00 every 6 Medical (six) Branch hours as needed for Nausea and Vomiting (N/V). proMETHazin 2020-0 Yes [id number] 25mg Take 1 Univers e 25 mg 1-08 tablet by ity of tablet 00:00: mouth [place] 00 every 6 Medical (six) Branch hours as needed for Nausea and Vomiting (N/V). proMETHazin 2020-0 Yes [id number] 25mg Take 1 Univers e 25 mg 1-08 tablet by ity of tablet 00:00: mouth [place] 00 every 6 Medical (six) Branch hours as needed for Nausea and Vomiting (N/V). proMETHazin 2020-0 Yes [id number] 25mg Take 1 Univers e 25 mg 1-08 tablet by ity of tablet 00:00: mouth [place] 00 every 6 Medical (six) Branch hours as needed for Nausea and Vomiting (N/V). proMETHazin 2020-0 Yes [id number] 25mg Take 1 Univers e 25 mg 1-08 tablet by ity of tablet 00:00: mouth [place] 00 every 6 Medical (six) Branch hours as needed for Nausea and Vomiting (N/V). proMETHazin 1-0 Yes [id number] 25mg Take 1 Univers e 25 mg 1-08 tablet by ity of tablet 00:00: mouth [place] 00 every 6 Medical (six) Branch hours as needed for Nausea and Vomiting (N/V). proMETHazin 2020-0 Yes [id number] 25mg Take 1 Univers e 25 mg 1-08 tablet by ity of tablet 00:00: mouth [place] 00 every 6 Medical (six) Branch hours as needed for Nausea and Vomiting (N/V). proMETHazin 2020-0 Yes [id number] 25mg Take 1 Univers e 25 mg 1-08 tablet by ity of tablet 00:00: mouth [place] 00 every 6 Medical (six) Branch hours as needed for Nausea and Vomiting (N/V). proMETHazin 2020-0 Yes [id number] 25mg Take 1 Univers e 25 mg 1-08 tablet by ity of tablet 00:00: mouth [place] 00 every 6 Medical (six) Branch hours as needed for Nausea and Vomiting (N/V). proMETHazin 2020-0 Yes [id number] 25mg Take 1 Univers e 25 mg 1-08 tablet by ity of tablet 00:00: mouth [place] 00 every 6 Medical (six) Branch hours as needed for Nausea and Vomiting (N/V). proMETHazin 2020-0 Yes [id number] 25mg Take 1 Univers e 25 mg 1-08 tablet by ity of tablet 00:00: mouth [place] 00 every 6 Medical (six) Branch hours as needed for Nausea and Vomiting (N/V). proMETHazin 2020-0 Yes [id number] 25mg Take 1 Univers e 25 mg 1-08 tablet by ity of tablet 00:00: mouth [place] 00 every 6 Medical (six) Branch hours as needed for Nausea and Vomiting (N/V). proMETHazin 2020-0 Yes [id number] 25mg Take 1 Univers e 25 mg 1-08 tablet by ity of tablet 00:00: mouth [place] 00 every 6 Medical (six) Branch hours as needed for Nausea and Vomiting (N/V). proMETHazin 2020-0 Yes [id number] 25mg Take 1 Univers e 25 mg 1-08 tablet by ity of tablet 00:00: mouth [place] 00 every 6 Medical (six) Branch hours as needed for Nausea and Vomiting (N/V). proMETHazin 2020-0 Yes [id number] 25mg Take 1 Univers e 25 mg 1-08 tablet by ity of tablet 00:00: mouth [place] 00 every 6 Medical (six) Branch hours as needed for Nausea and Vomiting (N/V). proMETHazin 2020-0 Yes [id number] 25mg Take 1 Univers e 25 mg 1-08 tablet by ity of tablet 00:00: mouth [place] 00 every 6 Medical (six) Branch hours as needed for Nausea and Vomiting (N/V). proMETHazin 1-0 Yes [id number] 25mg Take 1 Univers e 25 mg 1-08 tablet by ity of tablet 00:00: mouth [place] 00 every 6 Medical (six) Branch hours as needed for Nausea and Vomiting (N/V). proMETHazin 2020-0 Yes [id number] 25mg Take 1 Univers e 25 mg 1-08 tablet by ity of tablet 00:00: mouth [place] 00 every 6 Medical (six) Branch hours as needed for Nausea and Vomiting (N/V). proMETHazin 2020-0 Yes [id number] 25mg Take 1 Univers e 25 mg 1-08 tablet by ity of tablet 00:00: mouth [place] 00 every 6 Medical (six) Branch hours as needed for Nausea and Vomiting (N/V). proMETHazin 2020-0 Yes [id number] 25mg Take 1 [facility] 25 mg 1-08 tablet by [facility] of tablet 00:00: mouth [place] 00 every 6 Medical (six) Branch hours as needed for Nausea and Vomiting (N/V). proMETHazin 2020-0 Yes [id number] 25mg Take 1 [facility] 25 mg 1-08 tablet by ity of tablet 00:00: mouth [place] 00 every 6 Medical (six) Branch hours as needed for Nausea and Vomiting (N/V). proMETHazin 2020-0 Yes [id number] 25mg Take 1 [facility] 25 mg 1-08 tablet by ity of tablet 00:00: mouth [place] 00 every 6 Medical (six) Branch hours as needed for Nausea and Vomiting (N/V). proMETHazin 2020-0 Yes [id number] 25mg Take 1 [facility] 25 mg 1-08 tablet by ity of tablet 00:00: mouth [place] 00 every 6 Medical (six) Branch hours as needed for Nausea and Vomiting (N/V). proMETHazin 1-0 Yes [id number] 25mg Take 1 [facility] 25 mg 1-08 tablet by ity of tablet 00:00: mouth [place] 00 every 6 Medical (six) Branch hours as needed for Nausea and Vomiting (N/V). proMETHazin 1-0 Yes [id number] 25mg Take 1 [facility] 25 mg 1-08 tablet by ity of tablet 00:00: mouth [place] 00 every 6 Medical (six) Branch hours as needed for Nausea and Vomiting (N/V). proMETHazin 2020-0 Yes [id number] 25mg Take 1 [facility] 25 mg 1-08 tablet by ity of tablet 00:00: mouth [place] 00 every 6 Medical (six) Branch hours as needed for Nausea and Vomiting (N/V). proMETHazin 2020-0 Yes [id number] 25mg Take 1 [facility] 25 mg 1-08 tablet by ity of tablet 00:00: mouth [place] 00 every 6 Medical (six) Branch hours as needed for Nausea and Vomiting (N/V). proMETHazin 2020-0 Yes [id number] 25mg Take 1 [facility] 25 mg 1-08 tablet by ity of tablet 00:00: mouth [place] 00 every 6 Medical (six) Branch hours as needed for Nausea and Vomiting (N/V). proMETHazin 2020-0 Yes [id number] 25mg Take 1 [facility] 25 mg 1-08 tablet by ity of tablet 00:00: mouth [place] 00 every 6 Medical (six) Branch hours as needed for Nausea and Vomiting (N/V). proMETHazin 0 Yes [id number] 25mg Take 1 [facility] 25 mg 1-08 tablet by ity of tablet 00:00: mouth [place] 00 every 6 Medical (six) Branch hours as needed for Nausea and Vomiting (N/V). proMETHazin 2020-0 Yes [id number] 25mg Take 1 [facility] 25 mg 1-08 tablet by ity of tablet 00:00: mouth [place] 00 every 6 Medical (six) Branch hours as needed for Nausea and Vomiting (N/V). proMETHazin 2020-0 Yes [id number] 25mg Take 1 [facility] 25 mg 1-08 tablet by ity of tablet 00:00: mouth [place] 00 every 6 Medical (six) Branch hours as needed for Nausea and Vomiting (N/V). proMETHazin 2020-0 Yes [id number] 25mg Take 1 [facility] 25 mg 1-08 tablet by ity of tablet 00:00: mouth [place] 00 every 6 Medical (six) Branch hours as needed for Nausea and Vomiting (N/V). proMETHazin 0 202- No [id number] 25mg Take 1 [facility] 25 mg 1-08 07-30 tablet by ity of tablet 00:00: 00:00 mouth [place] 00 :00 every 6 Medical (six) Branch hours as needed for Nausea and Vomiting (N/V). proMETHazin 2021-0 2021- No [id number] 25mg Take 1 [facility] 25 mg -08 07-30 tablet by ity of tablet 00:00: 00:00 mouth [place] 00 :00 every 6 Medical (six) Branch hours as needed for Nausea and Vomiting (N/V). proMETHazin 2021-0 2021- No [id number] 25mg Take 1 [facility] 25 mg -08 07-30 tablet by ity of tablet 00:00: 00:00 mouth [place] 00 :00 every 6 Medical (six) Branch hours as needed for Nausea and Vomiting (N/V). PROGESTERON 2021-0 Yes 15mg Take 15 mg [facility] 1-07 by mouth 2 ity of MICRONIZED 17:24: (two) [place] ORAL 28 times Medical daily. Branch PROGESTERON 1-0 Yes 15mg Take 15 mg [facility] 1-07 by mouth 2 ity of MICRONIZED 17:24: (two) [place] ORAL 28 times Medical daily. Branch PROGESTERON 1-0 Yes 15mg Take 15 mg [facility] 1-07 by mouth 2 ity of MICRONIZED 17:24: (two) [place] ORAL 28 times Medical daily. Branch PROGESTERON 1-0 Yes 15mg Take 15 mg [facility] 1-07 by mouth 2 ity of MICRONIZED 17:24: (two) [place] ORAL 28 times Medical daily. Branch PROGESTERON 1-0 Yes 15mg Take 15 mg [facility] 1-07 by mouth 2 ity of MICRONIZED 17:24: (two) [place] ORAL 28 times Medical daily. Branch PROGESTERON 2021-0 Yes 15mg Take 15 mg [facility] 1-07 by mouth 2 ity of MICRONIZED 17:24: (two) [place] ORAL 28 times Medical daily. Branch PROGESTERON 2021-0 Yes 15mg Take 15 mg [facility] 1-07 by mouth 2 ity of MICRONIZED 17:24: (two) [place] ORAL 28 times Medical daily. Branch PROGESTERON 2021-0 Yes 15mg Take 15 mg [facility] 1-07 by mouth 2 ity of MICRONIZED 17:24: (two) [place] ORAL 28 times Medical daily. Branch PROGESTERON 2021-0 Yes 15mg Take 15 mg [facility] 1-07 by mouth 2 ity of MICRONIZED 17:24: (two) [place] ORAL 28 times Medical daily. Branch PROGESTERON 1-0 Yes 15mg Take 15 mg [facility] 1-07 by mouth 2 ity of MICRONIZED 17:24: (two) [place] ORAL 28 times Medical daily. Branch PROGESTERON 2021-0 Yes 15mg Take 15 mg [facility] 1-07 by mouth 2 ity of MICRONIZED 17:24: (two) [place] ORAL 28 times Medical daily. Branch PROGESTERON 2021-0 Yes 15mg Take 15 mg [facility] 1-07 by mouth 2 ity of MICRONIZED 17:24: (two) [place] ORAL 28 times Medical daily. Branch PROGESTERON 1-0 Yes 15mg Take 15 mg [facility] 1-07 by mouth 2 ity of MICRONIZED 17:24: (two) [place] ORAL 28 times Medical daily. Branch PROGESTERON 1-0 Yes 15mg Take 15 mg [facility] 1-07 by mouth 2 ity of MICRONIZED 17:24: (two) [place] ORAL 28 times Medical daily. Branch PROGESTERON 1-0 Yes 15mg Take 15 mg [facility] 1-07 by mouth 2 ity of MICRONIZED 17:24: (two) [place] ORAL 28 times Medical daily. Branch PROGESTERON 1-0 Yes 15mg Take 15 mg [facility] 1-07 by mouth 2 ity of MICRONIZED 17:24: (two) [place] ORAL 28 times Medical daily. Branch PROGESTERON 1-0 Yes 15mg Take 15 mg [facility] 1-07 by mouth 2 ity of MICRONIZED 17:24: (two) [place] ORAL 28 times Medical daily. Branch PROGESTERON 1-0 Yes 15mg Take 15 mg [facility] 1-07 by mouth 2 ity of MICRONIZED 17:24: (two) [place] ORAL 28 times Medical daily. Branch PROGESTERON 2021-0 Yes 15mg Take 15 mg [facility] 1-07 by mouth 2 ity of MICRONIZED 17:24: (two) [place] ORAL 28 times Medical daily. Branch PROGESTERON 2021-0 Yes 15mg Take 15 mg [facility] 1-07 by mouth 2 ity of MICRONIZED 17:24: (two) [place] ORAL 28 times Medical daily. Branch PROGESTERON 2021-0 Yes 15mg Take 15 mg [facility] 1-07 by mouth 2 ity of MICRONIZED 17:24: (two) [place] ORAL 28 times Medical daily. [place] PROGESTERON 1-0 Yes 15mg Take 15 mg [facility] 1-07 by mouth 2 ity of MICRONIZED 17:24: (two) [place] ORAL 28 times Medical daily. [place] PROGESTERON 1-0 Yes 15mg Take 15 mg [facility] 1-07 by mouth 2 ity of MICRONIZED 17:24: (two) [place] ORAL 28 times Medical daily. [place] PROGESTERON 2020-0 Yes 15mg Take 15 mg [facility] 1-07 by mouth 2 ity of MICRONIZED 17:24: (two) [place] ORAL 28 times Medical daily. [place] PROGESTERON 1-0 Yes 15mg Take 15 mg [facility] 1-07 by mouth 2 ity of MICRONIZED 17:24: (two) [place] ORAL 28 times Medical daily. [place] PROGESTERON 1-0 Yes 15mg Take 15 mg [facility] 1-07 by mouth 2 ity of MICRONIZED 17:24: (two) [place] ORAL 28 times Medical daily. [place] PREDNISONE 1-0 Yes 5mg Take 5 mg [facility] ORAL 1-07 by mouth ity of 17:24: daily. [address] PREDNISONE 1-0 Yes 5mg Take 5 mg [facility] ORAL 1-07 by mouth ity of 17:24: daily. [address] PREDNISONE 1-0 Yes 5mg Take 5 mg [facility] ORAL 1-07 by mouth ity of 17:24: daily. [address] PREDNISONE 1-0 Yes 5mg Take 5 mg [facility] ORAL 1-07 by mouth ity of 17:24: daily. [address] PREDNISONE 2021-0 Yes 5mg Take 5 mg [facility] ORAL 1-07 by mouth ity of 17:24: daily. [address] PREDNISONE 2021-0 Yes 5mg Take 5 mg [facility] ORAL 1-07 by mouth ity of 17:24: daily. [address] PREDNISONE 2021-0 Yes 5mg Take 5 mg [facility] ORAL 1-07 by mouth ity of 17:24: daily. [address] PREDNISONE 2021-0 Yes 5mg Take 5 mg [facility] ORAL 1-07 by mouth ity of 17:24: daily. [address] PREDNISONE 2021-0 Yes 5mg Take 5 mg [facility] ORAL 1-07 by mouth ity of 17:24: daily. [address] PREDNISONE 2021-0 Yes 5mg Take 5 mg [facility] ORAL 1-07 by mouth ity of 17:24: daily. [address] PREDNISONE 2021-0 Yes 5mg Take 5 mg [facility] ORAL 1-07 by mouth ity of 17:24: daily. [address] PREDNISONE 2020-0 Yes 5mg Take 5 mg [facility] ORAL 1-07 by mouth ity of 17:24: daily. [address] PREDNISONE 2021-0 Yes 5mg Take 5 mg [facility] ORAL 1-07 by mouth ity of 17:24: daily. [address] PREDNISONE 202-0 Yes 5mg Take 5 mg [facility] ORAL 1-07 by mouth ity of 17:24: daily. [address] PREDNISONE 2020-0 Yes 5mg Take 5 mg [facility] ORAL 1-07 by mouth ity of 17:24: daily. [address] PNV 67-iron 2020-0 Yes Supervision 1{each} Take 1 [facility] ps-folate 1-07 of high Each by ity of no.1-dha 00:00: risk mouth [place] (VITAFOL 00 , daily. Med ical ULTRA) 29 antepartum Bran ch mg iron- 1 mg-200 mg Cap PNV 67-iron 2020-0 Yes Supervision 1{each} Take 1 [facility] ps-folate 1-07 of high Each by ity of no.1-dha 00:00: risk mouth [place] (VITAFOL 00 , daily. Med ical ULTRA) 29 antepartum Bran ch mg iron- 1 mg-200 mg Cap PNV 67-iron 2020-0 Yes [id number] 1{each} Take 1 [facility] ps-folate 1-07 Each by ity of no.1-dha 00:00: mouth [place] (VITAFOL 00 daily. Medical ULTRA) 29 Branch mg iron- 1 mg-200 mg Cap PNV 67-iron 2020-0 Yes [id number] 1{each} Take 1 [facility] ps-folate 1-07 Each by ity of no.1-dha 00:00: mouth [place] (VITAFOL 00 daily. Medical ULTRA) 29 Branch mg iron- 1 mg-200 mg Cap PNV 67-iron 2020-0 Yes [id number] 1{each} Take 1 [facility] ps-folate 1-07 Each by ity of no.1-dha 00:00: mouth [place] (VITAFOL 00 daily. Medical ULTRA) 29 Branch mg iron- 1 mg-200 mg Cap PNV 67-iron 2020-0 Yes [id number] 1{each} Take 1 [facility] ps-folate 1-07 Each by ity of no.1-dha 00:00: mouth [place] (VITAFOL 00 daily. Medical ULTRA) 29 Branch mg iron- 1 mg-200 mg Cap PNV 67-iron 2020-0 Yes [id number] 1{each} Take 1 [facility] ps-folate 1-07 Each by ity of no.1-dha 00:00: mouth [place] (VITAFOL 00 daily. Medical ULTRA) 29 Branch mg iron- 1 mg-200 mg Cap PNV 67-iron 2020-0 Yes [id number] 1{each} Take 1 [facility] ps-folate 1-07 Each by ity of no.1-dha 00:00: mouth [place] (VITAFOL 00 daily. Medical ULTRA) 29 Branch mg iron- 1 mg-200 mg Cap PNV 67-iron 2020-0 Yes [id number] 1{each} Take 1 [facility] ps-folate 1-07 Each by ity of no.1-dha 00:00: mouth [place] (VITAFOL 00 daily. Medical ULTRA) 29 Branch mg iron- 1 mg-200 mg Cap PNV 67-iron 2020-0 Yes [id number] 1{each} Take 1 [facility] ps-folate 1-07 Each by ity of no.1-dha 00:00: mouth [place] (VITAFOL 00 daily. Medical ULTRA) 29 Branch mg iron- 1 mg-200 mg Cap PNV 67-iron 2020-0 Yes [id number] 1{each} Take 1 [facility] ps-folate 1-07 Each by ity of no.1-dha 00:00: mouth [place] (VITAFOL 00 daily. Medical ULTRA) 29 Branch mg iron- 1 mg-200 mg Cap PNV 67-iron 2020-0 Yes [id number] 1{each} Take 1 [facility] ps-folate 1-07 Each by ity of no.1-dha 00:00: mouth [place] (VITAFOL 00 daily. Medical ULTRA) 29 Branch mg iron- 1 mg-200 mg Cap PNV 67-iron 2020-0 Yes [id number] 1{each} Take 1 [facility] ps-folate 1-07 Each by ity of no.1-dha 00:00: mouth [place] (VITAFOL 00 daily. Medical ULTRA) 29 Branch mg iron- 1 mg-200 mg Cap PNV 67-iron 2020-0 Yes [id number] 1{each} Take 1 [facility] ps-folate 1-07 Each by ity of no.1-dha 00:00: mouth [place] (VITAFOL 00 daily. Medical ULTRA) 29 Branch mg iron- 1 mg-200 mg Cap PNV 67-iron 2020-0 Yes [id number] 1{each} Take 1 [facility] ps-folate 1-07 Each by ity of no.1-dha 00:00: mouth [place] (VITAFOL 00 daily. Medical ULTRA) 29 Branch mg iron- 1 mg-200 mg Cap PNV 67-iron 2020-0 Yes [id number] 1{each} Take 1 [facility] ps-folate 1-07 Each by ity of no.1-dha 00:00: mouth [place] (VITAFOL 00 daily. Medical ULTRA) 29 Branch mg iron- 1 mg-200 mg Cap PNV 67-iron 2020-0 Yes [id number] 1{each} Take 1 [facility] ps-folate 1-07 Each by ity of no.1-dha 00:00: mouth [place] (VITAFOL 00 daily. Medical ULTRA) 29 Branch mg iron- 1 mg-200 mg Cap PNV 67-iron 2020-0 Yes [id number] 1{each} Take 1 [facility] ps-folate 1-07 Each by ity of no.1-dha 00:00: mouth [place] (VITAFOL 00 daily. Medical ULTRA) 29 Branch mg iron- 1 mg-200 mg Cap PNV 67-iron 2020-0 Yes [id number] 1{each} Take 1 [facility] ps-folate 1-07 Each by ity of no.1-dha 00:00: mouth [place] (VITAFOL 00 daily. Medical ULTRA) 29 Branch mg iron- 1 mg-200 mg Cap PNV 67-iron 2020-0 Yes [id number] 1{each} Take 1 [facility] ps-folate 1-07 Each by ity of no.1-dha 00:00: mouth [place] (VITAFOL 00 daily. Medical ULTRA) 29 Branch mg iron- 1 mg-200 mg Cap PNV 67-iron 2020-0 Yes [id number] 1{each} Take 1 [facility] ps-folate 1-07 Each by ity of no.1-dha 00:00: mouth [place] (VITAFOL 00 daily. Medical ULTRA) 29 Branch mg iron- 1 mg-200 mg Cap PNV 67-iron 2020-0 Yes [id number] 1{each} Take 1 [facility] ps-folate 1-07 Each by ity of no.1-dha 00:00: mouth [place] (VITAFOL 00 daily. Medical ULTRA) 29 Branch mg iron- 1 mg-200 mg Cap PNV 67-iron 2020-0 Yes [id number] 1{each} Take 1 [facility] ps-folate 1-07 Each by ity of no.1-dha 00:00: mouth [place] (VITAFOL 00 daily. Medical ULTRA) 29 Branch mg iron- 1 mg-200 mg Cap PNV 67-iron 2020-0 Yes [id number] 1{each} Take 1 [facility] ps-folate 1-07 Each by ity of no.1-dha 00:00: mouth [place] (VITAFOL 00 daily. Medical ULTRA) 29 Branch mg iron- 1 mg-200 mg Cap PNV 67-iron 2020-0 Yes [id number] 1{each} Take 1 [facility] ps-folate 1-07 Each by ity of no.1-dha 00:00: mouth [place] (VITAFOL 00 daily. Medical ULTRA) 29 Branch mg iron- 1 mg-200 mg Cap PNV 67-iron 2020-0 Yes [id number] 1{each} Take 1 [facility] ps-folate 1-07 Each by ity of no.1-dha 00:00: mouth [place] (VITAFOL 00 daily. Medical ULTRA) 29 Branch mg iron- 1 mg-200 mg Cap PNV 67-iron 2020-0 Yes [id number] 1{each} Take 1 [facility] ps-folate 1-07 Each by ity of no.1-dha 00:00: mouth [place] (VITAFOL 00 daily. Medical ULTRA) 29 Branch mg iron- 1 mg-200 mg Cap PNV 67-iron 2020-0 Yes [id number] 1{each} Take 1 [facility] ps-folate 1-07 Each by ity of no.1-dha 00:00: mouth [place] (VITAFOL 00 daily. Medical ULTRA) 29 Branch mg iron- 1 mg-200 mg Cap PNV 67-iron 2020-0 Yes [id number] 1{each} Take 1 [facility] ps-folate 1-07 Each by ity of no.1-dha 00:00: mouth [place] (VITAFOL 00 daily. Medical ULTRA) 29 Branch mg iron- 1 mg-200 mg Cap PNV 67-iron 2020-0 Yes [id number] 1{each} Take 1 [facility] ps-folate 1-07 Each by ity of no.1-dha 00:00: mouth [place] (VITAFOL 00 daily. Medical ULTRA) 29 Branch mg iron- 1 mg-200 mg Cap PNV 67-iron 2020-0 Yes [id number] 1{each} Take 1 [facility] ps-folate 1-07 Each by ity of no.1-dha 00:00: mouth [place] (VITAFOL 00 daily. Medical ULTRA) 29 Branch mg iron- 1 mg-200 mg Cap PNV 67-iron 2020-0 Yes [id number] 1{each} Take 1 [facility] ps-folate 1-07 Each by ity of no.1-dha 00:00: mouth [place] (VITAFOL 00 daily. Medical ULTRA) 29 Branch mg iron- 1 mg-200 mg Cap PNV 67-iron 2020-0 Yes [id number] 1{each} Take 1 [facility] ps-folate 1-07 Each by ity of no.1-dha 00:00: mouth [place] (VITAFOL 00 daily. Medical ULTRA) 29 Branch mg iron- 1 mg-200 mg Cap PNV 67-iron 2020-0 Yes [id number] 1{each} Take 1 [facility] ps-folate 1-07 Each by ity of no.1-dha 00:00: mouth [place] (VITAFOL 00 daily. Medical ULTRA) 29 Branch mg iron- 1 mg-200 mg Cap PNV 67-iron 2020-0 Yes [id number] 1{each} Take 1 [facility] ps-folate 1-07 Each by ity of no.1-dha 00:00: mouth [place] (VITAFOL 00 daily. Medical ULTRA) 29 Branch mg iron- 1 mg-200 mg Cap PNV 67-iron 2020-0 Yes [id number] 1{each} Take 1 [facility] ps-folate 1-07 Each by ity of no.1-dha 00:00: mouth [place] (VITAFOL 00 daily. Medical ULTRA) 29 Branch mg iron- 1 mg-200 mg Cap PNV 67-iron 2020-0 Yes [id number] 1{each} Take 1 [facility] ps-folate 1-07 Each by ity of no.1-dha 00:00: mouth [place] (VITAFOL 00 daily. Medical ULTRA) 29 Branch mg iron- 1 mg-200 mg Cap PNV 67-iron 2020-0 Yes [id number] 1{each} Take 1 [facility] ps-folate 1-07 Each by ity of no.1-dha 00:00: mouth [place] (VITAFOL 00 daily. Medical ULTRA) 29 Branch mg iron- 1 mg-200 mg Cap PNV 67-iron 2020-0 Yes [id number] 1{each} Take 1 [facility] ps-folate 1-07 Each by ity of no.1-dha 00:00: mouth [place] (VITAFOL 00 daily. Medical ULTRA) 29 Branch mg iron- 1 mg-200 mg Cap PNV 67-iron 2020-0 Yes [id number] 1{each} Take 1 [facility] ps-folate 1-07 Each by ity of no.1-dha 00:00: mouth [place] (VITAFOL 00 daily. Medical ULTRA) 29 Branch mg iron- 1 mg-200 mg Cap PNV 67-iron 2020-0 Yes [id number] 1{each} Take 1 [facility] ps-folate 1-07 Each by ity of no.1-dha 00:00: mouth [place] (VITAFOL 00 daily. Medical ULTRA) 29 Branch mg iron- 1 mg-200 mg Cap PNV 67-iron 2020-0 Yes [id number] 1{each} Take 1 [facility] ps-folate 1-07 Each by ity of no.1-dha 00:00: mouth [place] (VITAFOL 00 daily. Medical ULTRA) 29 Branch mg iron- 1 mg-200 mg Cap PNV 67-iron 2020-0 Yes [id number] 1{each} Take 1 [facility] ps-folate 1-07 Each by ity of no.1-dha 00:00: mouth [place] (VITAFOL 00 daily. Medical ULTRA) 29 Branch mg iron- 1 mg-200 mg Cap PNV 67-iron 2020-0 Yes [id number] 1{each} Take 1 [facility] ps-folate 1-07 Each by ity of no.1-dha 00:00: mouth [place] (VITAFOL 00 daily. Medical ULTRA) 29 Branch mg iron- 1 mg-200 mg Cap PNV 67-iron 2020-0 Yes [id number] 1{each} Take 1 [facility] ps-folate 1-07 Each by ity of no.1-dha 00:00: mouth [place] (VITAFOL 00 daily. Medical ULTRA) 29 Branch mg iron- 1 mg-200 mg Cap PNV 67-iron 2020-0 Yes [id number] 1{each} Take 1 [facility] ps-folate 1-07 Each by ity of no.1-dha 00:00: mouth [place] (VITAFOL 00 daily. Medical ULTRA) 29 Branch mg iron- 1 mg-200 mg Cap PNV 67-iron 2020-0 Yes [id number] 1{each} Take 1 [facility] ps-folate 1-07 Each by ity of no.1-dha 00:00: mouth [place] (VITAFOL 00 daily. Medical ULTRA) 29 Branch mg iron- 1 mg-200 mg Cap PNV 67-iron 2020-0 Yes [id number] 1{each} Take 1 [facility] ps-folate 1-07 Each by ity of no.1-dha 00:00: mouth [place] (VITAFOL 00 daily. Medical ULTRA) 29 Branch mg iron- 1 mg-200 mg Cap PNV 67-iron 2020-0 Yes [id number] 1{each} Take 1 [facility] ps-folate 1-07 Each by ity of no.1-dha 00:00: mouth [place] (VITAFOL 00 daily. Medical ULTRA) 29 Branch mg iron- 1 mg-200 mg Cap PNV 67-iron 2020-0 2020- No [id number] 1{each} Take 1 [facility] ps-folate 1-07 07-30 Each by ity of no.1-dha 00:00: 00:00 mouth [place] (VITAFOL 00 :00 daily. Medical ULTRA) 29 Branch mg iron- 1 mg-200 mg Cap PNV 67-iron 2020-0 2020- No [id number] 1{each} Take 1 [facility] ps-folate 1-07 07-30 Each by ity of no.1-dha 00:00: 00:00 mouth [place] (VITAFOL 00 :00 daily. Medical ULTRA) 29 Branch mg iron- 1 mg-200 mg Cap PNV 67-iron 2020-0 2020- No [id number] 1{each} Take 1 [facility] ps-folate 1-07 07-30 Each by ity of no.1-dha 00:00: 00:00 mouth [place] (VITAFOL 00 :00 daily. Medical ULTRA) 29 Branch mg iron- 1 mg-200 mg Cap Immunizations Ordered Filled Immunization Date Status Comments [facility] e Immunization Name Name HPV9 2020-11-13 Completed University of 00:00:00 [facility] HPV9 2020-11-13 Completed University of 00:00:00 [facility] HPV9 2020-11-13 Completed University of 00:00:00 [facility] TDAP 2020-10-06 Completed University of 00:00:00 [facility] TDAP 2020-10-06 Completed University of 00:00:00 [facility] TDAP 2020-10-06 Completed University of 00:00:00 [facility] TDAP 2020-10-06 Completed University of 00:00:00 [facility] TDAP 2020-10-06 Completed University of 00:00:00 [facility] TDAP 2020-10-06 Completed University of 00:00:00 [facility] TDAP 2020-10-06 Completed University of 00:00:00 [facility] TDAP 2020-10-06 Completed University of 00:00:00 [facility] TDAP 2020-10-06 Completed University of 00:00:00 [facility] TDAP 2020-10-06 Completed University of 00:00:00 [facility] TDAP 2020-10-06 Completed University of 00:00:00 [facility] TDAP 2020-10-06 Completed University of 00:00:00 [facility] TDAP 2020-10-06 Completed University of 00:00:00 [facility] TDAP 2020-10-06 Completed University of 00:00:00 [facility] SARS-COV-2 COVID-19 2020-09-06 Completed Unive rsity of PFIZER VACCINE 00:00:00 [facility] SARS-COV-2 COVID-19 2020-09-06 Completed Unive rsity of PFIZER VACCINE 00:00:00 [facility] SARS-COV-2 COVID-19 2020-09-06 Completed Unive rsity of PFIZER VACCINE 00:00:00 [facility] SARS-COV-2 COVID-19 2020-09-06 Completed Unive rsity of PFIZER VACCINE 00:00:00 [place] [facility] SARS-COV-2 COVID-19 2020-09-06 Completed Unive rsity of PFIZER VACCINE 00:00:00 [facility] Branch SARS-COV-2 COVID-19 2020-09-06 Completed Unive rsity of PFIZER VACCINE 00:00:00 [facility] Branch SARS-COV-2 COVID-19 2020-09-06 Completed Unive rsity of PFIZER VACCINE 00:00:00 [facility] Branch SARS-COV-2 COVID-19 2020-09-06 Completed Unive rsity of PFIZER VACCINE 00:00:00 [facility] Branch SARS-COV-2 COVID-19 2020-09-06 Completed Unive rsity of PFIZER VACCINE 00:00:00 [facility] Branch SARS-COV-2 COVID-19 2020-09-06 Completed Unive rsity of PFIZER VACCINE 00:00:00 [facility] Branch SARS-COV-2 COVID-19 2020-09-06 Completed Unive rsity of PFIZER VACCINE 00:00:00 [facility] Branch SARS-COV-2 COVID-19 2020-09-06 Completed Unive rsity of PFIZER VACCINE 00:00:00 [facility] Branch SARS-COV-2 COVID-19 2020-09-06 Completed Unive rsity of PFIZER VACCINE 00:00:00 [facility] Branch SARS-COV-2 COVID-19 2020-09-06 Completed Unive rsity of PFIZER VACCINE 00:00:00 [facility] Branch SARS-COV-2 COVID-19 2020-09-06 Completed Unive rsity of PFIZER VACCINE 00:00:00 [facility] Branch SARS-COV-2 COVID-19 2020-09-06 Completed Unive rsity of PFIZER VACCINE 00:00:00 [facility] Branch SARS-COV-2 COVID-19 2020-09-06 Completed Unive rsity of PFIZER VACCINE 00:00:00 [facility] Branch SARS-COV-2 COVID-19 2020-08-09 Completed Unive rsity of PFIZER VACCINE 00:00:00 [facility] Branch SARS-COV-2 COVID-19 2020-08-09 Completed Unive rsity of PFIZER VACCINE 00:00:00 [facility] Branch SARS-COV-2 COVID-19 2020-08-09 Completed Unive rsity of PFIZER VACCINE 00:00:00 [facility] Branch SARS-COV-2 COVID-19 2020-08-09 Completed Unive rsity of PFIZER VACCINE 00:00:00 [facility] Branch SARS-COV-2 COVID-19 2020-08-09 Completed Unive rsity of PFIZER VACCINE 00:00:00 [facility] SARS-COV-2 COVID-19 2020-08-09 Completed Unive rsity of PFIZER VACCINE 00:00:00 [facility] Branch SARS-COV-2 COVID-19 2020-08-09 Completed Unive rsity of PFIZER VACCINE 00:00:00 [facility] Branch SARS-COV-2 COVID-19 2020-08-09 Completed Unive rsity of PFIZER VACCINE 00:00:00 [facility] Branch SARS-COV-2 COVID-19 2020-08-09 Completed Unive rsity of PFIZER VACCINE 00:00:00 [facility] Branch SARS-COV-2 COVID-19 2020-08-09 Completed Unive rsity of PFIZER VACCINE 00:00:00 [facility] Branch SARS-COV-2 COVID-19 2020-08-09 Completed Unive rsity of PFIZER VACCINE 00:00:00 [facility] Branch SARS-COV-2 COVID-19 2020-08-09 Completed Unive rsity of PFIZER VACCINE 00:00:00 [facility] Branch SARS-COV-2 COVID-19 2020-08-09 Completed Unive rsity of PFIZER VACCINE 00:00:00 [facility] SARS-COV-2 COVID-19 2020-08-09 Completed Unive rsity of PFIZER VACCINE 00:00:00 [facility] Branch SARS-COV-2 COVID-19 2020-08-09 Completed Unive rsity of PFIZER VACCINE 00:00:00 [facility] Branch SARS-COV-2 COVID-19 2020-08-09 Completed Unive rsity of PFIZER VACCINE 00:00:00 [facility] Branch SARS-COV-2 COVID-19 2020-08-09 Completed Unive rsity of PFIZER VACCINE 00:00:00 [facility] SARS-COV-2 COVID-19 2020-08-09 Completed Unive rsity of PFIZER VACCINE 00:00:00 [facility] SARS-COV-2 COVID-19 2020-08-09 Completed Unive rsity of PFIZER VACCINE 00:00:00 [facility] SARS-COV-2 COVID-19 2020-08-09 Completed Unive rsity of PFIZER VACCINE 00:00:00 [facility] SARS-COV-2 COVID-19 2020-08-09 Completed Unive rsity of PFIZER VACCINE 00:00:00 [facility] SARS-COV-2 COVID-19 2020-08-09 Completed Unive rsity of PFIZER VACCINE 00:00:00 [facility] SARS-COV-2 COVID-19 2020-08-09 Completed Unive rsity of PFIZER VACCINE 00:00:00 [facility] SARS-COV-2 COVID-19 2020-08-09 Completed Unive rsity of PFIZER VACCINE 00:00:00 [facility] SARS-COV-2 COVID-19 2020-08-09 Completed Unive rsity of PFIZER VACCINE 00:00:00 [facility] SARS-COV-2 COVID-19 2020-08-09 Completed Unive rsity of PFIZER VACCINE 00:00:00 [facility] SARS-COV-2 COVID-19 2020-08-09 Completed Unive rsity of PFIZER VACCINE 00:00:00 [facility] Vital Signs Vital Name Observation Time Observation Value Comments Source Systolic blood 2020-12-04 20:20:00 128 mm[Hg] Univer sity of pressure [facility] Diastolic blood 2020-12-04 20:20:00 84 mm[Hg] Unive rsity of pressure [facility] Heart rate 2020-12-04 20:20:00 80 /min [facility] Body temperature 2020-12-04 20:20:[address] [facility] Body height 2020-12-04 20:20:00 162.6 cm [facility] Body weight 2020-12-04 20:20:00 93.441 kg [facility] BMI 2020-12-04 20:20:00 35.36 kg/m2 [facility] Systolic blood 2020-11-07 18:40:00 115 mm[Hg] Univer sity of pressure [facility] Diastolic blood 2020-11-07 18:40:00 77 mm[Hg] Unive rsity of pressure [facility] Heart rate 2020-11-07 18:40:00 80 /min [facility] Body temperature 2020-11-07 18:40:00 36.67 Deepika Univ ersity [facility] Respiratory rate 2020-11-07 18:40:00 18 /min Univ ersity [facility] Body height 2020-11-07 18:40:00 162.6 cm [facility] Body weight 2020-11-07 18:40:00 99.655 kg [facility] BMI 2020-11-07 18:40:00 37.71 kg/m2 [facility] Systolic blood 2020-10-31 18:12:00 116 mm[Hg] Univer sity of pressure [facility] Diastolic blood 2020-10-31 18:12:00 80 mm[Hg] Unive rsity of pressure [facility] Heart rate 2020-10-31 18:12:00 88 /min [facility] Body temperature 2020-10-31 18:12:00 36.72 Deepika Univ [facility] Respiratory rate 2020-10-31 18:12:00 18 /min Univ ersity [facility] Body height 2020-10-31 18:12:00 162.6 cm [facility] Body weight 2020-10-31 18:12:00 98.748 kg [facility] BMI 2020-10-31 18:12:00 37.37 kg/m2 [facility] Systolic blood 2020-10-17 17:45:00 120 mm[Hg] Univer sity of pressure [facility] Diastolic blood 2020-10-17 17:45:00 77 mm[Hg] Unive rsity of pressure [facility] Heart rate 2020-10-17 17:45:00 88 /min [facility] Body temperature 2020-10-17 17:45:00 36.67 Deepika Univ [facility] Respiratory rate 2020-10-17 17:45:00 18 /min Univ ers[facility] Body height 2020-10-17 17:45:00 162.6 cm [facility] Body weight 2020-10-17 17:45:00 98.612 kg [facility] BMI 2020-10-17 17:45:00 37.32 kg/m2 [facility] Systolic blood 2020-10-06 20:33:00 102 mm[Hg] Univer sity of pressure [facility] Diastolic blood 2020-10-06 20:33:00 62 mm[Hg] Unive rsity of pressure [facility] Heart rate 2020-10-06 20:33:00 128 /min [facility] Body temperature 2020-10-06 20:33:00 36.5 Deepika Univ [facility] Respiratory rate 2020-10-06 20:33:00 20 /min Univ [facility] Body height 2020-10-06 20:33:00 162.6 cm [facility] Body weight 2020-10-06 20:33:00 98.113 kg [facility] BMI 2020-10-06 20:33:00 37.13 kg/m2 [facility] Systolic blood 2020-09-23 15:55:00 110 mm[Hg] Univer sity of pressure [facility] Diastolic blood 2020-09-23 15:55:00 78 mm[Hg] Unive rsity of pressure [facility] Heart rate 2020-09-23 15:55:00 78 /min [facility] Respiratory rate 2020-09-23 15:55:00 18 /min Univ ers[facility] Body height 2020-09-23 15:55:00 162.6 cm [facility] Body weight 2020-09-23 15:55:00 98.158 kg [facility] BMI 2020-09-23 15:55:00 37.14 kg/m2 [facility] Systolic blood 2020-09-05 16:15:00 118 mm[Hg] Univer sity of pressure [facility] Diastolic blood 2020-09-05 16:15:00 70 mm[Hg] Unive rsity of pressure [facility] Body temperature 2020-09-05 16:15:00 36.83 Deepika Univ [facility] Respiratory rate 2020-09-05 16:15:00 18 /min Univ ers[facility] Body height 2020-09-05 16:15:00 162.6 cm [facility] Body weight 2020-09-05 16:15:00 98.204 kg [facility] BMI 2020-09-05 16:15:00 37.16 kg/m2 [facility] Systolic blood 2020-08-22 15:18:00 122 mm[Hg] Univer sity of pressure [facility] Diastolic blood 2020-08-22 15:18:00 69 mm[Hg] Unive rsity of pressure [facility] Branch Heart rate 2020-08-22 15:18:00 79 /min Universi ty of [facility] Body temperature 2020-08-22 15:18:00 36.89 Deepika Univ ersity of [facility] Respiratory rate 2020-08-22 15:18:00 16 /min Univ ersity of [facility] Body height 2020-08-22 15:18:00 162.6 cm [facility] Body weight 2020-08-22 15:18:00 96.979 kg [facility] BMI 2020-08-22 15:18:00 36.70 kg/m2 [facility] Systolic blood 2020-08-18 18:00:00 125 mm[Hg] Univer sity of pressure [facility] Diastolic blood 2020-08-18 18:00:00 75 mm[Hg] Unive rsity of pressure [facility] Heart rate 2020-08-18 18:00:00 80 /min [facility] Respiratory rate 2020-08-18 18:00:00 18 /min Univ ersity of [facility] Oxygen saturation in 2020-08-18 18:00:00 100 /min [facility] Arterial blood by [facility] Pulse oximetry Branch Body temperature 2020-08-18 16:54:00 36.67 Deepika Univ ersity of [facility] Body height 2020-08-18 16:54:00 162.6 cm [facility] [place] [facility] [place] Body weight 2020-08-18 16:54:00 96.8 kg [facility] BMI 2020-08-18 16:54:00 36.61 kg/m2 [facility] Systolic blood 2020-07-28 17:53:00 126 mm[Hg] Univer sity of pressure [facility] Diastolic blood 2020-07-28 17:53:00 80 mm[Hg] Unive rsity of pressure [facility] Heart rate 2020-07-28 17:53:00 79 /min [facility] Respiratory rate 2020-07-28 17:53:00 18 /min Univ ersity [facility] Body height 2020-07-28 17:53:00 162.6 cm [facility] Body weight 2020-07-28 17:53:00 96.752 kg [facility] BMI 2020-07-28 17:53:00 36.61 kg/m2 [facility] Systolic blood 2020-07-22 18:00:00 114 mm[Hg] Univer sity of pressure [facility] Diastolic blood 2020-07-22 18:00:00 77 mm[Hg] Unive rsity of pressure [facility] Heart rate 2020-07-22 18:00:00 64 /min [facility] Respiratory rate 2020-07-22 18:00:00 18 /min Univ ersity of [facility] Branch Oxygen saturation in 2020-07-22 18:00:00 98 /min University Arterial blood by [facility] Pulse oximetry Branch Systolic blood 2020-06-30 16:00:00 116 mm[Hg] Univer sity of pressure [facility] Diastolic blood 2020-06-30 16:00:00 72 mm[Hg] Unive rsity of pressure [facility] Heart rate 2020-06-30 16:00:00 70 /min [facility] Body temperature 2020-06-30 16:00:00 36.56 Deepika Univ [facility] Respiratory rate 2020-06-30 16:00:00 16 /min Univ [facility] Body height 2020-06-30 16:00:00 162.6 cm [facility] Body weight 2020-06-30 16:00:00 96.219 kg [facility] BMI 2020-06-30 16:00:00 36.41 kg/m2 [facility] Systolic blood 2020-05-19 22:30:00 119 mm[Hg] Univer sity of pressure [facility] Diastolic blood 2020-05-19 22:30:00 78 mm[Hg] Unive rsity of pressure [facility] Heart rate 2020-05-19 22:30:00 74 /min [facility] Body temperature 2020-05-19 22:30:00 37.06 Deepika Univ [facility] Respiratory rate 2020-05-19 22:30:00 16 /min Univ [facility] Body height 2020-05-19 22:30:00 164.6 cm [facility] Body weight 2020-05-19 22:30:00 94.802 kg [facility] BMI 2020-05-19 22:30:00 34.99 kg/m2 [facility] Systolic blood 2020-05-08 15:42:00 127 mm[Hg] Univer sity of pressure [facility] Diastolic blood 2020-05-08 15:42:00 75 mm[Hg] Unive rsity of pressure [facility] Heart rate 2020-05-08 15:42:00 91 /min [facility] Body temperature 2020-05-08 15:42:00 36.44 Deepika Univ [facility] Respiratory rate 2020-05-08 15:42:00 16 /min Univ ersity [facility] Body height 2020-05-08 15:42:00 162.6 cm [facility] Body weight 2020-05-08 15:42:00 96.276 kg [facility] BMI 2020-05-08 15:42:00 36.43 kg/m2 [facility] Systolic blood 2020-04-24 16:49:00 121 mm[Hg] Univer sity of pressure [facility] Diastolic blood 2020-04-24 16:49:00 86 mm[Hg] Unive rsity of pressure [facility] Heart rate 2020-04-24 16:49:00 84 /min [facility] Body temperature 2020-04-24 16:49:00 36.17 Deepika [facility] Respiratory rate 2020-04-24 16:49:00 16 /min [facility] Body height 2020-04-24 16:49:00 162.6 cm [facility] Body weight 2020-04-24 16:49:00 94.915 kg [facility] BMI 2020-04-24 16:49:00 35.92 kg/m2 [facility] Procedures Procedure Date / Time Performing Clinician Source Performed HOSPITAL ADMISSION 2020-11-12 05:01:00 Doctor Unassigned, No [facility] POCT URINALYSIS 2020-10-31 18:15:00 Janki Dueñas [facility] GALV ONLY - VAGINAL 2020-10-17 18:25:00 Yanelis Joseph [facility] PATHOGENS BY [facility] ACID TESTING POCT URINALYSIS 2020-10-17 17:48:00 Janki Dueñas [facility] TDAP VACCINE, >11 YRS, 2020-10-06 21:00:30 Yanelis Joseph [facility] POCT URINALYSIS 2020-09-23 15:57:00 Janki Dueñas [facility] AUTHORIZATION FOR 2020-09-06 05:01:00 Doctor Unassigned, No [facility] RELEASE OF [facility] GLUCOSE 1 HOUR POST 2020-08-22 16:17:00 Yanelis Joseph [facility] CBC WITH DIFF 2020-08-22 16:17:00 Yanelis Joseph [facility] SECOND AND THIRD 2020-08-22 14:55:00 Janki Dueñas [facility] TRIMESTER ULTRASOUND [facility] SECOND AND THIRD 2020-08-22 14:49:00 Janki Dueñas [facility] TRIMESTER ULTRASOUND [facility] URINALYSIS 2020-08-18 18:13:00 Elvie Davis o f [facility] COVID-19 (ID NOW RAPID 2020-08-18 16:38:00 David Lemos [facility] TESTING) Medical Branch COVID-19 (ID NOW RAPID 2020-07-22 15:36:00 Kathia Vazquez [facility] TESTING) Medical Branch CONSENT/REFUSAL FOR 2020-07-22 05:01:00 Doctor Unassigned, No [facility] DIAGNOSIS AND TREATMENT Name Medical Branch SECOND AND THIRD 2020-07-11 17:07:[address] [facility] TRIMESTER ULTRASOUND [facility] SECOND AND THIRD 2020-07-11 16:57:[address] [facility] TRIMESTER ULTRASOUND [facility] POCT URINALYSIS 2020-06-30 16:01:00 Janki Dueñas [facility] POCT URINALYSIS 2020-05-19 22:41:00 Janki Dueñas [facility] EXTERNAL PROVIDER 2020-05-08 06:01:00 Doctor Unassigned, No [facility] RECORDS Name Medical Branch POCT TEST 2020-04-24 16:33:00 Janki Dueñas [facility] POCT URINALYSIS W/O 2020-04-24 16:33:00 Janki Dueñas Uni [facility] SPECIFIC GRAVITY [facility] Plan of Care Planned Activity Planned Date Details Comments Source Future Scheduled 2023-04-24 Screening for [facility] Test 00:00:00 malignant neoplasm Medical B ranch of cervix (procedure) [code = 023620942] Future Scheduled 2023-04-24 Screening for [facility] Test 00:00:00 malignant neoplasm Medical [facility] ranch of cervix (procedure) [code = 238738997] Future Scheduled 2021-04-24 Depression screening Uni versity [facility] Test 00:00:00 (procedure) [code = Medical Branch [id number]] Future Scheduled 2021-04-24 Depression screening Uni versity [facility] Test 00:00:00 (procedure) [code = Medical Branch [id number]] Future Scheduled 2020-12-17 INFLUENZA VACCINE Univer sitFormerly [facility] Test 00:00:00 (Season Ended) [code Medical Branch = INFLUENZA VACCINE (Season Ended)] Future Scheduled 2020-12-17 INFLUENZA VACCINE Univer [facility] Test 00:00:00 (Season Ended) [code Medical Branch = INFLUENZA VACCINE (Season Ended)] Future Scheduled 2020-08-30 SARS-CoV-2 [facility] Test 00:00:00 (COVID-19) Vaccine Medical [facility] ranch (2 - Pfizer 2-dose series) [code = SARS-CoV-2 (COVID-19) Vaccine (2 - Pfizer 2-dose series)] Future Scheduled 2020-08-30 SARS-CoV-2 [facility] Test 00:00:00 (COVID-19) Vaccine Medical B ranch (2 - Pfizer 2-dose series) [code = SARS-CoV-2 (COVID-19) Vaccine (2 - Pfizer 2-dose series)] Future Scheduled 2012 DTaP,Tdap,and Td Univers [facility] Test 00:00:00 Vaccines (1 - Tdap) Medical Branch [code = DTaP,Tdap,and Td Vaccines (1 - Tdap)] Future Scheduled 2012 DTaP,Tdap,and Td Univers [facility] Test 00:00:00 Vaccines (1 - Tdap) Medical Branch [code = DTaP,Tdap,and Td Vaccines (1 - Tdap)] Future Scheduled 2011 Hepatitis C [facility] Test 00:00:00 screening Medical Branch (procedure) [code = [id number]] Future Scheduled 2011 Hepatitis C [facility] Test 00:00:00 screening Medical Branch (procedure) [code = [id number]] Encounters Start End Encounter Admission Attending Care Care Encounter Source Date/Time Date/Time Type Type Clinicians Facility Department ID 2021-02-15 Outpatient P [facility] SATHISH [id number] Univers 16:46:31 ity [facility] 2021-02-15 Outpatient P [facility] SATHISH [id number] Univers 11:03:18 ity [facility] 2021-02-15 Outpatient [facility] [id number] [facility]-12-25 2020-12-25 Outpatient Alejandro HENSLEY [facility] [id number] Univers 13:15:00 13:15:00 [facility] 2020-12-25 2020-12-25 Outpatient R SHELLIE [facility] [id number] Univers 12:45:00 12:45:00 DIVYA lindsay [facility] 2020-12-25 2020-12-25 [facility] 1.2.840.114 [id number] Univers 00:00:00 00:00:00 Divya LEAD SOFTWARE DEVELOPMENT ENGINEER [id number] ity of REGIONAL 4.2.7.2.686 Daljit as MATERNAL [id number] [facility] & CHILD [address] [place] [address] 2020-12-04 2020-12-04 [facility] [id number] Univers 14:19:10 14:31:12 Divya LEAD SOFTWARE DEVELOPMENT ENGINEER [id number] ity of Visit REGIONAL [id number] Daljit as MATERNAL [phone] [facility] & [address] 2020-12-04 2020-12-04 Outpatient R SHELLIE [facility] [id number] Univers 12:45:00 12:45:[address] [facility] 2020-11-12 2020-11-12 Orders Doctor PAULA 1.2.840.114 [id number] Univers 00:00:00 00:00:00 Only Unassigned, HOMA 350.1.13.10 ity of [place] [facility] 4.2.7.2.686 Daljit as [phone] [address] 2020-11-07 2020-11-07 Routine Provider, Daljit-Rmchp [facility] 1 .2.840.114 [id number] Univers 13:26:09 14:06:14 Yanelis Joseph LEAD SOFTWARE DEVELOPMENT ENGINEER [id number] ity of Visit REGIONAL 4.2.7.2.686 Daljit as MATERNAL [phone] [facility] & CHILD [address] [place] [address] 2020-11-07 2020-11-07 Outpatient R JAKE [facility] [id number] Univers 14:00:00 14:00:00 YANELIS lindsay [facility] 2020-10-31 2020-10-31 Routine Provider, Daljit[facility] 1 .2.840.114 [id number] Univers 12:44:27 13:51:35 JakeIrineoYanelis LEAD SOFTWARE DEVELOPMENT ENGINEER 350.1.13.10 ity of Visit REGIONAL 4.2.7.2.686 Daljit as MATERNAL [phone] [facility] & CHILD [address] [place] [address] 2020-10-31 2020-10-31 Outpatient R JAKE [facility] [id number] Univers 12:45:00 12:45:[address] [facility] 2020-10-17 2020-10-17 [facility] 1 .2.840.114 [id number] Univers 12:31:55 13:17:12 Jake Yanelis LEAD SOFTWARE DEVELOPMENT ENGINEER [id number] ity of Visit REGIONAL 4.2.7.2.686 Daljit as MATERNAL [id number] [facility] & [address] 2020-10-17 2020-10-17 Outpatient R [facility] [id number] Univers 12:45:00 12:45:00 ity [facility] 2020-10-06 2020-10-06 Routine SHASTA Joseph [id number] Univers 15:21:45 15:58:26 Yanelis Y HEALTH 350.1.13.10 ity [id number] [address] 2020-10-06 2020-10-06 Outpatient R JAKE [facility] [id number] Univers 15:15:00 15:58:[address] [facility] 2020-09-23 2020-09-23 Routine SHASTA Tristan [id number] Univers 10:43:33 11:32:47 Reyna Y HEALTH 350.1.13.10 ity of [place] [id number] [address] 2020-09-23 2020-09-23 Outpatient R KUN [facility] [id number] Univers 10:45:00 10:45:00 REYNA ity of [facility] 2020-09-06 2020-09-06 Outpatient R [facility] [id number] Univers 08:45:00 08:45:00 ity of [facility] 2020-09-06 2020-09-06 Orders Doctor PAULA 1.2.840.114 [id number] Univers 00:00:00 00:00:00 Only Unassigned, HOMA 350.1.13.10 ity of [facility] 4.2.7.2.686 Daljit as [phone] [facility] 009 Branch 2020-09-05 2020-09-05 Routine INDIO Tristan 1.2.049.253 [id number] Univers 10:40:13 11:37:14 [facility] [id number] ity of Visit CL[place] [id number] [facility] [address] [place] 2020-09-05 2020-09-05 [facility] [id number] Univers 11:00:00 11:00:00 REYNA ity [facility] 2020-08-29 2020-08-29 [facility], Ang-Rmchp [facility] 1.2.840. 114 [id number] Univers 08:17:53 08:51:05 Visit Janki Deuñas LEAD SOFTWARE DEVELOPMENT ENGINEER 350.1.13. 10 ity of [facility] 4.2.7.2.686 Daljit as MATERNAL [phone] Med ical & CHILD [address] [place] [address] 2020-08-29 2020-08-29 Outpatient R SPENSER [facility] [id number] Univers 08:30:00 08:30:00 JANKI lindsay o f [facility] 2020-08-22 2020-08-22 Routine Yanelis Joseph [facility] 1.2.840 .114 [id number] Univers 10:03:03 11:18:31 Kun [facility] [id number] ity of Visit [place] [id number] [facility] 113 Branch 2020-08-22 2020-08-22 [facility] 1, [facility] Room UN[facility]ERS[facility] 1 .2.840.114 [id number] Univers 09:17:12 10:01:21 Visit David Lemos Y HEALTH 350.1.13.10 ity of CL[place] [id number] [facility] 104 Branch 2020-08-22 2020-08-22 Outpatient P [facility] [id number] Univers 09:00:00 09:00:00 ity of [facility] 2020-08-22 2020-08-22 [place] Joseph [facility] [id number] Univers 00:00:00 00:00:00 Management Yanelis Y HEALTH 350.1.13.10 ity of [place] [id number] [facility] 113 Branch 2020-08-18 2020-08-18 Hospital [facility] PAULA 1.2.840.114 [id number] Univers 11:34:00 14:05:00 Encounter David Kaufman [place] 350.1.13.10 ity of [place] [id number] [facility] 070 Branch 2020-08-18 2020-08-18 Nurse PAULA Lewis 1.2.840.114 [id number] Univers 00:00:00 00:00:00 Triage Sera LUTHER 350.1.13.10 it y of HOSPITAL 4.2.7.2.686 Daljit as [id number] [facility] 019 Branch 2020-08-09 2020-08-09 Outpatient R SVETA, [facility] [id number] Univers 12:00:00 12:00:00 SHILPA ity of [facility] 2020-08-04 2020-08-04 [place] JakeINDIOIT 1.2.734.154 [id number] Univers 00:00:00 00:00:00 Management Yanelis HEALTH 350.1.13.10 ity of [place] [id number] [facility] 113 Branch 2020-07-28 2020-07-28 Routine Jake, [facility] 1.2.910.410 [id number] Univers 12:43:53 13:17:09 [facility] 350.1.13.10 ity of Visit CLINICS [place] [id number] [facility] [address] [place] 2020-07-28 2020-07-28 Outpatient R JAKE, [facility] [id number] Univers 12:45:00 12:45:00 YANELIS ity [facility] 2020-07-28 2020-07-28 Outpatient R AKINDOMINIC, [facility] [id number] Univers 09:30:00 09:30:00 JANKI lindsay o f [facility] 2020-07-22 2020-07-22 [facility] YelenaPAULA santiago 1.2.840.114 [id number] Univers 10:24:00 13:00:00 Encounter Kathia LUTHER 350.1.13.10 ity of [place] [id number] [facility] [address] [place] 2020-07-16 2020-07-16 [facility] 1.2.840.114 [id number] Univers 00:00:00 00:00:00 Janki Gray LEAD SOFTWARE DEVELOPMENT ENGINEER 350.1.13.10 ity of REGIONAL 4.2.7.2.686 Daljit as MATERNAL [id number] [facility] ical & CHILD [address] [place] [address] 2020-07-11 2020-07-11 [facility] 3, [facility] Room UN[facility]ERS[facility] 1 .2.840.114 [id number] Univers 10:15:12 13:09:41 Visit Ron Hope [facility] 350.1.13.10 ity of CL[place] [id number] [facility] 104 [address] 2020-07-11 2020-07-11 Outpatient P [facility] [id number] Univers 10:15:00 10:15:00 ity of [facility] 2020-06-30 2020-06-30 Routine Spenser [facility] 1.2.190.886 [id number] Univers 10:43:11 11:23:44 Janki C LEAD SOFTWARE DEVELOPMENT ENGINEER 350.1.13.10 ity of Visit REGIONAL 4.2.7.2.686 Daljit as MATERNAL [id number] Med ical & CHILD 107 [facility] 2020-06-30 2020-06-30 Outpatient R AKINMEGAN, [facility] [id number] Univers 10:30:00 10:30:00 JANKI ity o f [facility] 2020-06-09 2020-06-09 Outpatient R AKINSIPE, [facility] [facility] [id number] Univers 14:45:00 14:45:00 JANKI ity o f [facility] 2020-06-05 2020-06-05 Outpatient R [facility] [id number] Univers 09:30:00 09:30:00 ity [facility] 2020-05-23 2020-05-23 [facility] 1.2.840. 114 [id number] Univers 11:50:23 12:05:23 Visit Trinity Rodriguez LEAD SOFTWARE DEVELOPMENT ENGINEER 350.1.13.10 ity of REGIONAL 4.2.7.2.686 Daljit as MATERNAL [phone] [facility] & CHILD [address] [place] [address] 2020-05-23 2020-05-23 [facility] 1.2. 840.114 [id number] Univers 10:54:15 11:39:15 Visit Ron Hope LEAD SOFTWARE DEVELOPMENT ENGINEER 350.1.13.10 ity of REGIONAL 4.2.7.2.686 Daljit as MATERNAL [phone] [facility] & CHILD [address] [facility] 2020-05-23 2020-05-23 Outpatient P [facility] [id number] Univers 11:00:00 11:00:00 ity of [facility] 2020-05-23 2020-05-23 [facility] 1.2.840.114 [id number] Univers 00:00:00 00:00:00 Janki Gray LEAD SOFTWARE DEVELOPMENT ENGINEER 350.1.13.10 ity of REGIONAL 4.2.7.2.686 Daljit [address] MATERNAL [phone] [facility] & CHILD [address] [place] [address] 2020-05-19 2020-05-19 Routine [facility], [facility] 1.2.830.298 [id number] Univers 16:16:15 16:51:56 Janki Gray LEAD SOFTWARE DEVELOPMENT ENGINEER 350.1.13.10 ity of Visit REGIONAL 4.2.7.2.686 Daljit as MATERNAL [phone] [facility] & CHILD [address] [place] [address] 2020-05-19 2020-05-19 Outpatient R [facility] [id number] Univers 16:00:00 16:00:00 JANKI lindsay o f [facility] 2020-05-18 2020-05-18 Nurse PAULA Tran 1.2.840.114 [id number] Univers 00:00:00 00:00:00 Triage Ana LUTHER 350.1.13.10 it y of HOSPITAL 4.2.7.2.686 Daljit as [phone] [facility] [address] [place] 2020-05-08 2020-05-08 Routine Risk, Tsk-Paaja-Ah/High [facility] 1. 2.840.114 [id number] Univers 09:36:48 10:32:01 Jo Ann Alvarez LEAD SOFTWARE DEVELOPMENT ENGINEER 350.1.13.10 ity of Visit REGIONAL 4.2.7.2.686 Daljit as MATERNAL [phone] [facility] & CHILD [address] [place] [address] 2020-05-08 2020-05-08 Outpatient R [facility] [id number] Univers 09:30:00 09:30:00 ity of [facility] 2020-05-08 2020-05-08 Orders Doctor MITCHELL 1.2.840.114 [id number] Univers 00:00:00 00:00:00 Only Unassigned, HOMA 350.1.13.10 ity of [place] [facility] 4.2.7.2.686 Daljit as [phone] [facility] [address] [place] 2020-04-30 2020-04-30 [facility], Ang-Rmchp [facility] 1.2.840. 114 [id number] Univers 08:17:18 08:31:43 Visit Brendamegan Janki C LEAD SOFTWARE DEVELOPMENT ENGINEER 350.1.13. 10 ity of REGIONAL 4.2.7.2.686 Daljit as MATERNAL [phone] [facility] & CHILD [address] [place] [address] 2020-04-30 2020-04-30 [facility] [id number] Univers 08:15:00 08:15:00 JANKI ity o f [facility] 2020-04-28 2020-04-28 Telephone [facility] 1.2.840.114 [id number] Univers 00:00:00 00:00:00 Janki C LEAD SOFTWARE DEVELOPMENT ENGINEER 350.1.13.10 ity of REGIONAL 4.2.7.2.686 Daljit as MATERNAL [phone] [address] 2020-04-25 2020-04-25 Telephone [facility] 1.2.840.114 [id number] Univers 00:00:00 00:00:00 Janki C LEAD SOFTWARE DEVELOPMENT ENGINEER 350.1.13.10 ity of REGIONAL 4.2.7.2.686 Daljit as MATERNAL [id number] [address] 2020-04-24 2020-04-24 Initial [facility] 1.2.513.483 [id number] Univers 10:21:04 11:49:30 Janki C LEAD SOFTWARE DEVELOPMENT ENGINEER 350.1.13.10 ity of Visit REGIONAL 4.2.7.2.686 Daljit as MATERNAL [phone] [facility] & [address] 2020-04-24 2020-04-24 Outpatient R [facility] [id number] Univers 09:30:00 09:30:00 ity of [facility] 2020-04-24 2020-04-24 Telephone [facility] 1.2.840.114 [id number] Univers 00:00:00 00:00:00 Janki C LEAD SOFTWARE DEVELOPMENT ENGINEER 350.1.13.10 ity of REGIONAL 4.2.7.2.686 Daljit as MATERNAL [phone] [facility] & CHILD [address] [place] [address] Results Test Description Test Time Test Comments Results Result Comments Source POCT URINALYSIS W SPECIFIC GRAVITY 2020-10-31 18:16:00 Test Item Value Reference Range Interpretation Comme nts POCT U SP GRAV (test code = 3255) 1.015 mg/dl 1.005-1.025 POCT PH U (test code = 3254) 6 mg/dl 5-8 POCT U LEUK EST (test code = 3263) NEG Negative - Negative POCT U NIT (test code = 3262) NEG Negative - Negative POCT U PROT (test code = 3259) TRACE Negative - Negative A POCT U GLU (test code = 3256) NEG Negative - Negative POCT U KETONE (test code = 3258) NEG Negative - Negative POCT U UROBILI (test code = 3260) NEG 0.2-1 POCT U BILI (test code = 3261) NEG Negative - Negative POCT U BLD (test code = 3257) TRACE Negative - Negative A POCT U COLOR (test code = 3266) POCT U APPEAR (test code = 3267) Lab Interpretation (test code = 96974-4) Abnormal [facility] URINALYSIS W SPECIFIC [id number] 18:16:00 Test Item Value Reference Range Interpretation Comments POCT U SP GRAV (test code = 1.015 mg/dl 1.005-1.025 3255) POCT PH U (test code = 3254) 6 mg/dl 5-8 POCT U LEUK EST (test code = NEG Negative - Negative 3263) POCT U NIT (test code = 3262) NEG Negative - Negative POCT U PROT (test code = TRACE Negative - Negative A 3259) POCT U GLU (test code = 3256) NEG Negative - Negative POCT U KETONE (test code = NEG Negative - Negative 3258) POCT U UROBILI (test code = NEG 0.2-1 3260) POCT U BILI (test code = NEG Negative - Negative 3261) POCT U BLD (test code = 3257) TRACE Negative - Negative A POCT U COLOR (test code = 3266) POCT U APPEAR (test code = 3267) Lab Interpretation (test code Abnormal = 22802-3) [facility] [id number] 18:16:00 Test Item Value Reference Range Interpretation Comments POCT U SP GRAV (test code = 1.015 mg/dl 1.005-1.025 3255) POCT PH U (test code = 3254) 6 mg/dl 5-8 POCT U LEUK EST (test code = NEG Negative - Negative 3263) POCT U NIT (test code = 3262) NEG Negative - Negative POCT U PROT (test code = TRACE Negative - Negative A 3259) POCT U GLU (test code = 3256) NEG Negative - Negative POCT U KETONE (test code = NEG Negative - Negative 3258) POCT U UROBILI (test code = NEG 0.2-1 3260) POCT U BILI (test code = NEG Negative - Negative 3261) POCT U BLD (test code = 3257) TRACE Negative - Negative A POCT U COLOR (test code = 3266) POCT U APPEAR (test code = 3267) Lab Interpretation (test code Abnormal = 03109-0) [facility] URINALYSIS W SPECIFIC [id number] 18:16:00 Test Item Value Reference Range Interpretation Comments POCT U SP GRAV (test code = 1.015 mg/dl 1.005-1.025 3255) POCT PH U (test code = 3254) 6 mg/dl 5-8 POCT U LEUK EST (test code = NEG Negative - Negative 3263) POCT U NIT (test code = 3262) NEG Negative - Negative POCT U PROT (test code = TRACE Negative - Negative A 3259) POCT U GLU (test code = 3256) NEG Negative - Negative POCT U KETONE (test code = NEG Negative - Negative 3258) POCT U UROBILI (test code = NEG 0.2-1 3260) POCT U BILI (test code = NEG Negative - Negative 3261) POCT U BLD (test code = 3257) TRACE Negative - Negative A POCT U COLOR (test code = 3266) POCT U APPEAR (test code = 3267) Lab Interpretation (test code Abnormal = 41562-1) [facility] URINALYSIS W SPECIFIC [id number] 18:16:00 Test Item Value Reference Range Interpretation Comments POCT U SP GRAV (test code = 1.015 mg/dl 1.005-1.025 3255) POCT PH U (test code = 3254) 6 mg/dl 5-8 POCT U LEUK EST (test code = NEG Negative - Negative 3263) POCT U NIT (test code = 3262) NEG Negative - Negative POCT U PROT (test code = TRACE Negative - Negative A 3259) POCT U GLU (test code = 3256) NEG Negative - Negative POCT U KETONE (test code = NEG Negative - Negative 3258) POCT U UROBILI (test code = NEG 0.2-1 3260) POCT U BILI (test code = NEG Negative - Negative 3261) POCT U BLD (test code = 3257) TRACE Negative - Negative A POCT U COLOR (test code = 3266) POCT U APPEAR (test code = 3267) Lab Interpretation (test code Abnormal = 42819-7) [facility] BY NUCLEIC ACID [id number] 20:15:18 Test Item Value Reference Range Interpretation Comments Trichomonas vaginalis Negative Negative (test code = 8156862563) Carla species (test Negative Negative code = 7187858549) Carla glabrata (test Negative Negative code = 89104-9) Bacterial Vaginosis Negative Negative (test code = 79867-7) JAMEY (test code = JAMEY) Reliable results are dependent on adequate specimen collection. This test detects Trichomonas vaginalis, Carla glabrata, and other Carla species (C. albicans, C. parapsilosis, C. dubliniensis, and C. tropicalis). ?The assay does not differentiate among organisms in the Carla species group. The Bacterial Vaginosis result is determined based on relative amounts of the following target organisms: Lactobacillus (L. gasseri, L. crispatus, and L. jensenii), Gardnerella vaginalis, and Atopobium vaginae. ?A single qualitative result is generated. ?This assay does not report individual organisms. A positive result obtained from a patient after therapeutic treatment cannot be interpreted as indicating the presence of viable organisms. ?For patients on whom a false positive result may have adverse psychosocial impact, retesting is advised. Indeterminate: Unable to generate a valid test result on this specimen. ?Please submit a new specimen for repeat testing if clinically indicated. This testing has not been validated for medico-legal purposes (sexual abuse in pamella-pubertal and pre-pubertal children, sexual assault, and legal cases). Results from this testing should be interpreted in conjunction with other laboratory and clinical data available to the clinician. Lab Interpretation Normal (test code = 22924-7) [facility]AGINAL PATHOGENS BY NUCLEIC ACID [id number] 20:15:18 Test Item Value Reference Range Interpretation Comments Trichomonas vaginalis (test code = Negative Negative 7831929046) Carla species (test code = Negative Negative 3097569256) Carla glabrata (test code = Negative Negative 13214-4) Bacterial Vaginosis (test code = Negative Negative 47350-1) JAMEY (test code = JAMEY) Lab Interpretation (test code = Normal 58396-8) [facility] URINALYSIS W SPECIFIC [id number] 17:49:00 Test Item Value Reference Range Interpretation Comments POCT U SP GRAV (test code = 1.025 mg/dl 1.005-1.025 3255) POCT PH U (test code = 3254) 5 mg/dl 5-8 POCT U LEUK EST (test code = NEG Negative - Negative 3263) POCT U NIT (test code = 3262) NEG Negative - Negative POCT U PROT (test code = TRACE Negative - Negative A 3259) POCT U GLU (test code = 3256) 2+ Negative - Negative A POCT U KETONE (test code = NEG Negative - Negative 3258) POCT U UROBILI (test code = NEG 0.2-1 3260) POCT U BILI (test code = NEG Negative - Negative 3261) POCT U BLD (test code = 3257) TRACE Negative - Negative A POCT U COLOR (test code = 3266) POCT U APPEAR (test code = 3267) Lab Interpretation (test code Abnormal = 84128-5) [facility] URINALYSIS W SPECIFIC [id number] 17:49:00 Test Item Value Reference Range Interpretation Comments POCT U SP GRAV (test code = 1.025 mg/dl 1.005-1.025 3255) POCT PH U (test code = 3254) 5 mg/dl 5-8 POCT U LEUK EST (test code = NEG Negative - Negative 3263) POCT U NIT (test code = 3262) NEG Negative - Negative POCT U PROT (test code = TRACE Negative - Negative A 3259) POCT U GLU (test code = 3256) 2+ Negative - Negative A POCT U KETONE (test code = NEG Negative - Negative 3258) POCT U UROBILI (test code = NEG 0.2-1 3260) POCT U BILI (test code = NEG Negative - Negative 3261) POCT U BLD (test code = 3257) TRACE Negative - Negative A POCT U COLOR (test code = 3266) POCT U APPEAR (test code = 3267) Lab Interpretation (test code Abnormal = 76023-6) [facility] URINALYSIS W SPECIFIC [id number] 15:57:00 Test Item Value Reference Range Interpretation Comments POCT U SP GRAV (test code = . 1.005-1.025 3255) POCT PH U (test code = 3254) . 5-8 POCT U LEUK EST (test code = negative Negative - Negative 3262) POCT U NIT (test code = 3262) negative Negative - Negative POCT U PROT (test code = 3259) trace Negative - Negative POCT U GLU (test code = 3256) trace Negative - Negative POCT U KETONE (test code = 3258) none Negative - Negative POCT U UROBILI (test code = . 0.2-1 3260) POCT U BILI (test code = 3261) . Negative - Negative POCT U BLD (test code = 3257) trace Negative - Negative POCT U COLOR (test code = 3266) POCT U APPEAR (test code = 3267) Lab Interpretation (test code = Abnormal 88933-9) [facility] URINALYSIS W SPECIFIC [id number] 15:57:00 Test Item Value Reference Range Interpretation Comments POCT U SP GRAV (test code = . 1.005-1.025 3255) POCT PH U (test code = 3254) . 5-8 POCT U LEUK EST (test code = negative Negative - Negative 3) POCT U NIT (test code = 3262) negative Negative - Negative POCT U PROT (test code = 3259) trace Negative - Negative POCT U GLU (test code = 3256) trace Negative - Negative POCT U KETONE (test code = 3258) none Negative - Negative POCT U UROBILI (test code = . 0.2-1 3260) POCT U BILI (test code = 3261) . Negative - Negative POCT U BLD (test code = 3257) trace Negative - Negative POCT U COLOR (test code = 3266) POCT U APPEAR (test code = 3267) Lab Interpretation (test code = Abnormal 13349-8) [facility] Hour [facility] [id number] 17:04:08 Test Item Value Reference Range Interpretation Comments GLUC 1 HR (test code = 6111572243) 159 mg/dL 120-170 Lab Interpretation (test code = Normal 90656-0) [facility] with [id number] 16:50:47 Test Item Value Reference Range Interpretation Comments WBC (test code = See_Comment [Automated 0990-2) message] The sy stem which generated this result transmitted reference range : 4.30 - 11.10 10*3/?L. The reference range was not used to interpret this result as normal/abnormal . RBC (test code = See_Comment L [Automated 729-8) message] The sy stem which generated this result transmitted reference range : 3.93 - 5.25 10*6/?L. The reference range was not used to interpret this result as normal/abnormal . HGB (test code = 10.7 g/dL 11.6-15.0 L 718-7) HCT (test code = 33.3 % 35.7-45.2 L 4544-3) MCV (test code = 88.3 fL 80.6-95.5 787-2) MCH (test code = 28.4 pg 25.9-32.8 785-6) MCHC (test code = 32.1 g/dL 31.6-35.1 786-4) RDW-SD (test code = 41.1 fL 39.0-49.9 11083-8) RDW-CV (test code = 12.7 % 12.0-15.5 788-0) PLT (test code = See_Comment [Automated 777-3) message] The sy stem which generated this result transmitted reference range : 166 - 358 10*3/ ?L. The reference r nguyen was not used to interpret this result as normal/abnormal . MPV (test code = 9.1 fL 9.5-12.9 L 85924-1) NRBC/100 WBC (test See_Comment [Automat ed code = 5899079726) message] The system which generated this result transmitted reference range : 0.0 - 10.0 /100 WBCs. The refer ence range was not u sed to interpret th is result as normal/abnormal . NRBC x10^3 (test code <0.01 See_Comment [Auto mated = 7572063108) message] The s ystem which generated this result transmitted reference range : 10*3/?L. The reference range was not used to interpret this result as normal/abnormal . GRAN MAT (NEUT) % 80.6 % (test code = 770-8) IMM GRAN % (test code 0.50 % = 1816783294) LYMPH % (test code = 15.5 % 736-9) MONO % (test code = 3.1 % 5905-5) EOS % (test code = 0.2 % 713-8) BASO % (test code = 0.1 % 706-2) GRAN MAT x10^3(ANC) 7.36 10*3/uL 1.88-7.09 H (test code = 1189508159) IMM GRAN x10^3 (test 0.05 10*3/uL 0.00-0.06 code = 2947584527) LYMPH x10^3 (test code 1.42 10*3/uL 1.32-3.29 = 731-0) MONO x10^3 (test code 0.28 10*3/uL 0.33-0.92 L = 742-7) EOS x10^3 (test code = <0.03 0.03-0.39 L 711-2) BASO x10^3 (test code <0.03 0.01-0.07 = 704-7) Lab Interpretation Abnormal (test code = 62725-9) [facility] 18:39:02 Test Item Value Reference Range Interpretation Comments APPEARANCE (test code = Clear Clear 5270102794) COLOR (test code = Straw Yellow A 9311773438) PH (test code = 4.8-8.0 8623160863) SP GRAVITY (test code = 1.003-1.030 5430828231) GLU U QUAL (test code = 500 mg/dL Normal A 2835227501) BLOOD (test code = Negative Negative 2324158204) KETONES (test code = Negative Negative 4395220695) PROTEIN (test code = Negative Negative 2887-8) UROBILIN (test code = Normal Normal 4817779794) BILIRUBIN (test code = Negative Negative 1064506831) NITRITE (test code = Negative Negative 9583123250) LEUK ROSITA (test code = Negative Negative 6395696189) RBC/HPF (test code = See_Comment [Autom ated message] 2165097428) The system Latinda generated this result transmit keyon reference range : 0 - 3 HPF. The refe rence range was not u sed to interpret th is result as normal/abnormal . WBC/HPF (test code = <1 See_Comment [Autom ated message] 8942007182) The system Latinda generated this result transmit keyon reference range : 0 - 5 HPF. The refe rence range was not u sed to interpret th is result as normal/abnormal . BACTERIA (test code = Few Negative A 0378970815) SQ EPITH (test code = See_Comment [Auto mated message] 3663583413) The system Latinda generated this result transmit keyon reference range : <=2 HPF. The refere nce range was not u sed to interpret th is result as normal/abnormal . Lab Interpretation (test Abnormal code = 31463-3) [facility] NOW RAPID TESTING)2020-08-18 17:32:39 Test Item Value Reference Range Interpretation Comments SARS-CoV-2 Rapid ID NOW Not Detected Not Detected (test code = 84117-4) JAMEY (test code = JAMEY) ID NOW COVID-19 Assay is an isothermal nucleic acid amplification test intended for the qualitative detection of nucleic acid from SARS-CoV-2 viral RNA in nasopharyngeal (BUSINESS SYSTEMS MANAGER) specimens. It is used under Emergency Use Authorization (EUA) by FDA. The limit of detection (LOD) of the assay is 125 Genome Equivalents/mL. A positive result is indicative of the presence of SARS-CoV-2 RNA. ?Clinical correlation with patient history and other diagnostic information is necessary to determine patient infection status. A negative (Not Detected) result does not preclude SARS-CoV-2 infection. In patients with clinical symptoms and other tests that are consistent with SARS-CoV-2 infection, negative results should be treated as presumptive negative and a new specimen should be tested with alternative PCR molecular test. Invalid: Please collect a new specimen for repeat patient testing if clinically indicated. Lab Interpretation Normal (test code = 62277-8) [facility]APID TESTING)2020-07-22 16:16:11 Test Item Value Reference Range Interpretation Comments SARS-CoV-2 Rapid ID NOW Not Detected Not Detected (test code = 78429-7) JAMEY (test code = JAMEY) ID NOW COVID-19 Assay is an isothermal nucleic acid amplification test intended for the qualitative detection of nucleic acid from SARS-CoV-2 viral RNA in nasopharyngeal (BUSINESS SYSTEMS MANAGER) specimens. It is used under Emergency Use Authorization (EUA) by FDA. The limit of detection (LOD) of the assay is 125 Genome Equivalents/mL. A positive result is indicative of the presence of SARS-CoV-2 RNA. ?Clinical correlation with patient history and other diagnostic information is necessary to determine patient infection status. A negative (Not Detected) result does not preclude SARS-CoV-2 infection. In patients with clinical symptoms and other tests that are consistent with SARS-CoV-2 infection, negative results should be treated as presumptive negative and a new specimen should be tested with alternative PCR molecular test. Invalid: Please collect a new specimen for repeat patient testing if clinically indicated. Lab Interpretation Normal (test code = 12167-9) [facility] W SPECIFIC [id number] 16:05:00 Test Item Value Reference Range Interpretation Comments POCT U SP GRAV (test code = 3255) . 1.005-1.025 POCT PH U (test code = 3254) . 5-8 POCT U LEUK EST (test code = 3263) . Negative - Negative POCT U NIT (test code = 3262) . Negative - Negative POCT U PROT (test code = 3259) Trace Negative - Negative POCT U GLU (test code = 3256) Neg Negative - Negative POCT U KETONE (test code = 3258) . Negative - Negative POCT U UROBILI (test code = 3260) . 0.2-1 POCT U BILI (test code = 3261) . Negative - Negative POCT U BLD (test code = 3257) . Negative - Negative POCT U COLOR (test code = 3266) POCT U APPEAR (test code = 3267) [facility] URINALYSIS W SPECIFIC [id number] 22:41:00 Test Item Value Reference Range Interpretation Comments POCT U SP GRAV (test code = 3255) . 1.005-1.025 POCT PH U (test code = 3254) 5 mg/dl 5-8 POCT U LEUK EST (test code = Neg Negative - Negative 3263) POCT U NIT (test code = 3262) Neg Negative - Negative POCT U PROT (test code = 3259) Trace Negative - Negative POCT U GLU (test code = 3256) Neg Negative - Negative POCT U KETONE (test code = 3258) 2+ Negative - Negative POCT U UROBILI (test code = 3260) . 0.2-1 POCT U BILI (test code = 3261) . Negative - Negative POCT U BLD (test code = 3257) Trace Negative - Negative POCT U COLOR (test code = 3266) POCT U APPEAR (test code = 3267) [facility] [id number] 16:33:00 Test Item Value Reference Range Interpretation Comments POCT PREG (test code = 1605) Positive On board controls acceptable with C Yes Line (test code = 3574) POCT PREG LOT # (test code = 3575) POCT PREG TEST DATE (test code = 3576) [facility] URINALYSIS W/O SPECIFIC [id number] 16:33:00 Test Item Value Reference Range Interpretation Comments POCT PH U (test code = 3254) 6 mg/dl 5-8 POCT U LEUK EST (test code = Neg Negative - Negative 3263) POCT U NIT (test code = 3262) Neg Negative - Negative POCT U PROT (test code = 3259) Trace Negative - Negative POCT U GLU (test code = 3256) Trace Negative - Negative POCT U KETONE (test code = 3258) None Negative - Negative POCT U BLD (test code = 3257) Trace Negative - Negative [facility]
[2022-03-05] MEDS ORDERED: METOCLOPRAMIDE 10 MG/2mL INJ ONE (22:03)
[2022-03-05] MEDS ORDERED: DIPHENHYDRAMINE 50 MG/ML VIAL ONE (22:03)
[2022-03-05] MEDS ORDERED: KETOROLAC 30 MG/ML INJ ONE (22:03)
[2022-03-05] MEDS ORDERED: NA CHLORIDE 0.9% 500 ML ONE (22:04)
[2022-03-05 22:33] LABS: Absolute Lymphocytes (CBC) 0.7 K/uL (0.7-4.9); Hematocrit 41.3 % (36.0-45.0); Lymphocytes % 6.5 % (15.3-44.8); MCV 84.8 fL (80-100); MPV 7.4 fL (7.6-11.3); RBC Red Blood Cell Count 4.87 M/uL (3.86-4.86)
[2022-03-05 22:45] LABS: Potassium 3.5 mmol/L (3.5-5.1)
--- NOTE | 2022-03-05 23:13 | ER ---
Nurse's Notes [facility] Name: Rica Acuna Age: 26 yrs Sex: Female : 1995 Arrival Date: 03/05/2022 Time: 20:37 Bed 7 Private MD: Diagnosis: Cephalgia;Episodic lightheadedness Presentation: 03/05 21:21 Chief complaint: Patient states: Pt had steroids put in back today in [facility]. ld1 Pt reporting headaches, high blood pressure, nausea, left arm hurting. Coronavirus screen: At this time, the client does not indicate any symptoms associated with coronavirus-19. Ebola Screen: No symptoms or risks identified at this time. Initial Sepsis Screen: Does the patient meet any 2 criteria? No. Patient's initial sepsis screen is negative. Does the patient have a suspected source of infection? No. Patient's initial sepsis screen is negative. Risk Assessment: Do you want to hurt yourself or someone else? Patient reports no desire to harm self or others. Onset of symptoms was March 05, 2022. 21:21 Method Of Arrival: Ambulatory ld1 21:21 Acuity: MARY 3 ld1 Triage Assessment: 21:23 General: Appears in no apparent distress. uncomfortable, Behavior is calm, cooperative, ld1 appropriate for age. Pain: Complains of pain in scalp and back Pain does not radiate. Pain currently is 9 out of 10 on a pain scale. Quality of pain is described as throbbing. EENT: No signs and/or symptoms were reported regarding the EENT system. Neuro: Level of Consciousness is awake, alert, obeys commands, Oriented to person, place, time, situation. Cardiovascular: Capillary refill < 3 seconds Patient's skin is warm and dry. Respiratory: Airway is patent Respiratory effort is even, unlabored. GI: Abdomen is round non-distended. GI: Reports nausea. : No signs and/or symptoms were reported regarding the genitourinary system. Derm: No signs and/or symptoms reported regarding the dermatologic system. Musculoskeletal: No signs and/or symptoms reported regarding the musculoskeletal system. 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 - Social history:: Smoking status: Patient denies any tobacco usage or history of. Patient/guardian denies using alcohol. Screenin:40 Abuse screen: Denies threats or abuse. Denies injuries from another. Nutritional aa9 screening: No deficits noted. Tuberculosis screening: No symptoms or risk factors identified. Fall Risk None identified. Assessment: 21:36 General: Appears uncomfortable, Behavior is cooperative, appropriate for age, drowsy. aa9 General:. General: Reports cortisone shots in the lower back area for a hernia this morning, pt reports she had high blood pressure, N/V at home after the procedure. Pain: Complains of pain in headache Pain currently is 9 out of 10 on a pain scale. Noted to be grimacing, moaning, Also complains of photophobia. Neuro: Level of Consciousness is awake, alert, obeys commands, Oriented to person, place, time, situation. Neuro: Reports numbness in left arm. Cardiovascular: Patient's skin is warm and dry. Respiratory: Airway is patent Respiratory effort is even, unlabored. GI: Reports nausea, vomiting, Patient currently denies diarrhea. : No signs and/or symptoms were reported regarding the genitourinary system. Derm: Skin is intact, is healthy with good turgor. Musculoskeletal: No signs and/or symptoms reported regarding the musculoskeletal system. 23:21 Reassessment: Patient appears in no apparent distress at this time. No changes from tw5 previously documented assessment. Patient and/or family updated on plan of care and expected duration. Pain level reassessed. Patient is alert, oriented x 3, equal unlabored respirations, skin warm/dry/pink. Patient states feeling better. Patient states symptoms have improved. Vital Signs: 21:21 BP 155 / 102; Pulse 82; Resp 18; Temp 98.5; Pulse Ox 100% on R/A; Weight 88.45 kg; ld1 Height 5 ft. 4 in. (162.56 cm); Pain 9/10; 21:40 BP 150 / 92; Pulse 75; Resp 19 S; Temp 98.3(O); Pulse Ox 98% on R/A; Pain 9/10; aa9 23:21 BP 123 / 63; Pulse 61; Resp 20; Pulse Ox 100% ; tw5 21:21 Body Mass Index 33.47 (88.45 kg, 162.56 cm) ld1 ED Course: 20:37 Patient arrived in ED. mr 21:23 Triage completed. ld1 21:23 Arm band placed on right wrist. ld1 21:32 Ciara Parrish MD is Attending Physician. sd2 21:40 Patient has correct armband on for positive identification. Placed in gown. Bed in low aa9 position. Call light in reach. Side rails up X2. Adult w/ patient. Client placed on continuous cardiac and pulse oximetry monitoring. NIBP monitoring applied. Warm blanket given. 21:58 Debi Maddox is Primary Nurse. tw5 22:14 Initial lab(s) drawn, by me, sent to lab. Urine collected: clean catch specimen, clear. tw5 Inserted saline lock: 20 gauge in right antecubital area, using aseptic technique. Blood collected. 22:15 BMP Sent. tw5 22:15 CBC with Diff Sent. tw5 23:21 IV discontinued, intact, bleeding controlled, No redness/swelling at site. Pressure tw5 dressing applied. 23:22 No provider procedures requiring assistance completed. tw5 Administered Medications: 22:14 Drug: NS 0.9% 500 ml Route: IV; Rate: bolus; Site: right antecubital; tw5 23:20 Follow up: Response: No adverse reaction; IV Status: Completed infusion; IV Intake: tw5 500ml 22:19 Drug: Ketorolac 15 mg Route: IVP; Site: right antecubital; tw5 23:21 Follow up: Response: No adverse reaction; Pain is decreased tw5 22:19 Drug: Reglan (metoCLOPramide) 10 mg Route: IVP; Site: right antecubital; tw5 23:21 Follow up: Response: No adverse reaction tw5 22:19 Drug: Benadryl (diphenhydrAMINE) 25 mg Route: IVP; Site: right antecubital; tw5 23:20 Follow up: Response: No adverse reaction tw5 Medication: 22:19 VIS not applicable for this client. tw5 Intake: 23:20 IV: 500ml; Total: 500ml. tw5 Outcome: 23:13 Discharge ordered by . sd2 23:21 Discharged to home ambulatory. tw5 23:21 Condition: good 23:21 Discharge instructions given to patient, Instructed on discharge instructions, follow up and referral plans. Demonstrated understanding of instructions, follow-up care. 23:24 Patient left the ED. tw5 Signatures: Shayla Díaz mr Marine Dominique, RN RN ld1 Debi Maddox tw5 Ciara Parrish MD MD sd2 Jazmyne Jefferson RN RN aa9 Corrections: (The following items were deleted from the chart) 21:25 21:21 88.45 kg; Height 5 ft. 4 in.; BMI: 33.4; Pain 9/10; ld1 ld1
--- NOTE | 2022-03-05 23:13 | EDPHYS ---
Physician Documentation [facility] Name: Rica Acuna Age: 26 yrs Sex: Female : 1995 Arrival Date: 03/05/2022 Time: 20:37 Bed 7 Private MD: ED Physician Ciara Parrish HPI: 03/05 21:44 This 26 yrs old Female presents to ER via Ambulatory with complaints of High sd2 Blood Pressure, Arm Pain, Nausea/Vomiting. 21:44 26 yo F presents with CC of headache. Pt reports headache that started today along with sd2 dizziness after having a procedure where she was placed under anesthesia to have a cortisone injection in her back. Reports the procedure went well and she has had once previously 1 month ago without issue. She states MTZ has associated photophobia, phonophobia, nausea and tingling to her left arm. No numbness or weakness. Has had similar symptoms twice in the past associated with elevated blood pressures during her . Reports BP at home elevated to 150/100. Not currently on any BP medication.. 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 - Social history:: Smoking status: Patient denies any tobacco usage or history of. Patient/guardian denies using alcohol. ROS: 21:44 Constitutional: Negative for fever, chills, and weight loss, Eyes: Negative for injury, sd2 pain, redness, and discharge, Positive for photophobia ENT: Negative for injury, pain, and discharge, Cardiovascular: Negative for chest pain, palpitations, and edema, Respiratory: Negative for shortness of breath, cough, wheezing. Abdomen/GI: Negative for abdominal pain, vomiting, diarrhea. Positive for nausea. MS/Extremity: Negative for injury and deformity, Skin: Negative for injury, rash, and discoloration, Neuro: Positive for headache and tingling. negative for numbness and weakness Exam: 21:44 Constitutional: This is a well developed, well nourished patient who is awake, alert, sd2 and in no acute distress. Head/Face: Normocephalic, atraumatic. Eyes: EOMI, normal conjunctiva bilaterally Chest/axilla: Normal chest wall appearance and motion. Nontender with no deformity. Cardiovascular: Regular rate and rhythm with a normal S1 and S2. No gallops, murmurs, or rubs. 2+ distal pulses. Respiratory: Lungs have equal breath sounds bilaterally, clear to auscultation and percussion. No rales, rhonchi or wheezes noted. No increased work of breathing, no retractions or nasal flaring. Abdomen/GI: Soft, non-tender, with normal bowel sounds. No guarding or rebound. No evidence of tenderness throughout. Skin: Warm, dry with normal turgor. Normal color with no rashes, no lesions, and no evidence of cellulitis. MS/ Extremity: Pulses equal, no cyanosis. Neurovascular intact. Full, normal range of motion. Ambulatory without difficulty. Neuro: Awake and alert, GCS 15, oriented to person, place, time, and situation. Cranial nerves II-XII grossly intact. Motor strength 5/5 in all extremities. Sensory grossly intact. Cerebellar exam normal. Normal gait. Psych: Awake, alert, with orientation to person, place and time. Behavior, mood, and affect are within normal limits. Vital Signs: 21:21 BP 155 / 102; Pulse 82; Resp 18; Temp 98.5; Pulse Ox 100% on R/A; Weight 88.45 kg; ld1 Height 5 ft. 4 in. (162.56 cm); Pain 9/10; 21:40 BP 150 / 92; Pulse 75; Resp 19 S; Temp 98.3(O); Pulse Ox 98% on R/A; Pain 9/10; aa9 23:21 BP 123 / 63; Pulse 61; Resp 20; Pulse Ox 100% ; tw5 21:21 Body Mass Index 33.47 (88.45 kg, 162.56 cm) ld1 MDM: 21:32 Patient medically screened. sd2 21:44 Differential diagnosis: Differential diagnosis includes but is not limited to: Tension sd2 headache, migraine headache, intracranial hemorrhage, dehydration, electrolyte abnormality, musculoskeletal, meningitis among others. Data reviewed: vital signs, nurses notes. 23:11 Data reviewed: lab test result(s). Counseling: I had a detailed discussion with the sd2 patient and/or guardian regarding: the historical points, exam findings, and any diagnostic results supporting the discharge/admit diagnosis, lab results, the need for outpatient follow up, to return to the emergency department if symptoms worsen or persist or if there are any questions or concerns that arise at home. Medical screen evaluation completed. [facility] emergency medical condition absent. ED course: Labs reviewed and grossly WNCL. NO focal neuro deficits. Pt with similar symptoms previously. BP not significantly high to warrant treatment at this time. Suspect symptoms are more likely due to recent anesthesia and side effects of this. Symptoms improved at time of repeat evaluation. Pt comfortable with plan for discharge and outpatient follow up. Verbalizes understanding of discharge plan and strict return precautions. . 03/05 21:44 Order name: CBC with Diff; Complete Time: :46 sd2 03/05 21:44 Order name: BMP; Complete Time: :46 sd2 03/05 21:44 Order name: Urine Test (obtain specimen); Complete Time: 22:20 sd2 Administered Medications: 22:14 Drug: NS 0.9% 500 ml Route: IV; Rate: bolus; Site: right antecubital; tw5 23:20 Follow up: Response: No adverse reaction; IV Status: Completed infusion; IV Intake: tw5 500ml 22:19 Drug: Ketorolac 15 mg Route: IVP; Site: right antecubital; tw5 23:21 Follow up: Response: No adverse reaction; Pain is decreased tw5 22:19 Drug: Reglan (metoCLOPramide) 10 mg Route: IVP; Site: right antecubital; tw5 23:21 Follow up: Response: No adverse reaction tw5 22:19 Drug: Benadryl (diphenhydrAMINE) 25 mg Route: IVP; Site: right antecubital; tw5 23:20 Follow up: Response: No adverse reaction tw5 Disposition Summary: 03/05/22 23:13 Discharge Ordered Location: Home sd2 Problem: new sd2 Symptoms: have improved sd2 Condition: Stable sd2 Diagnosis - Cephalgia sd2 - Episodic lightheadedness sd2 Followup: sd2 - With: Private Physician - When: 2 - 3 days - Reason: Recheck today's complaints, Continuance of care, Re-evaluation by your physician Discharge Instructions: - Discharge Summary Sheet sd2 - General Headache Without Cause sd2 Forms: - Medication Reconciliation Form sd2 - Thank You Letter sd2 - Antibiotic Education sd2 - Work release form hb - Prescription Opioid Use sd2 Signatures: Dispatcher [employer] Marine Vitale RN RN ld1 Debi Maddox tw5 Ciara Parrish MD MD sd2
[2022-03-05 23:45] VITALS: TEMP 98.3
[2022-03-05 23:51] VITALS: BP 123/63; O2SAT 100
== END 2022-03-05 23:24 | disposition home or self-care (01) ==
LOC: ER 20:34
DX: R51.9 Headache, unspecified (principal); R42 Dizziness and giddiness
CPT/HCPCS: 36415; 80048; 85025; 96361; 96374; 96375; 99283; J1200; J2765; J7040